=== PATIENT | female | born 1990 | race African-American/Black ===

== ENCOUNTER 2020-06-01 13:55 | Outpatient (REF) | payer OTHER, SELFPAY ==
--- NOTE | 2020-06-01 14:04 | XR_ITS ---
EXAMINATION: XR SACROILIAC JOINTS CLINICAL INFORMATION: Low back pain COMPARISON: None TECHNIQUE: 3 views of the sacroiliac joints FINDINGS: Bone alignment is normal. No fracture or dislocation is seen. The sacroiliac joints are normal. Soft tissues are normal. IMPRESSION: Normal sacroiliac joints.
== END 2020-06-01 13:56 | disposition home or self-care (01) ==
LOC: HO.HMGCX 13:55
PROVIDERS: PCP Internal Medicine; Visit Provider Internal Medicine
DX: M54.5 Low back pain (principal)
CPT/HCPCS: 72202

== ENCOUNTER → 2020-07-28 08:54 | Outpatient (BNVA) | payer OTHER, SELFPAY | PROVIDERS: PCP Internal Medicine; Referring Provider Internal Medicine; Visit Provider Physician Assistant | DX: Z76.89 Persons encountering health services in other specified circumstances (principal) ==

== ENCOUNTER 2020-08-05 09:32 | Outpatient (REF) | payer OTHER, SELFPAY ==
--- NOTE | 2020-08-05 09:35 | FL_ITS ---
EXAMINATION: FL BARIUM SWALLOW CLINICAL INFORMATION: Dysphagia. COMPARISON: None TECHNIQUE: Barium swallow examination is performed using fluoroscopic evaluation in addition to multiple fluoroscopic spot views. The patient is imaged both upright and prone and using both thick and thin sulfate along with effervescent granules. Fluoroscopy time: 1 minute . DAP: 7.420 Gycm2 Images: 50 FINDINGS: Following oral administration of thick barium, barium-coated turkey in upright view, there is normal propagation of bolus from the oral cavity, pharynx, esophagus into stomach without any evidence of obstruction, narrowing or stricture. On placing patient prone lying and oral administration of thin barium, there is normal esophageal distention without intraluminal filling defect or narrowing. There is no gastroesophageal reflux or hiatal hernia in supine or decubitus views. FL/FL barium swallow IMPRESSION: Unremarkable barium swallow. Especially, there is no obstructive lesion seen in cervical esophagus.
== END 2020-08-05 09:33 | disposition home or self-care (01) ==
LOC: HO.XRAY 09:32
PROVIDERS: Visit Provider Physician Assistant
DX: R13.10 Dysphagia, unspecified (principal)
CPT/HCPCS: 74220

== ENCOUNTER → 2020-08-16 11:38 | Outpatient (BNVA) | payer OTHER, SELFPAY | PROVIDERS: PCP Internal Medicine; Visit Provider Physician Assistant | DX: Z76.89 Persons encountering health services in other specified circumstances (principal) ==

== ENCOUNTER 2020-10-06 10:22 | Day surgery (SDC) | payer OTHER, SELFPAY ==
[2020-09-30 09:17] VITALS: BMI 26.6
--- NOTE | 2020-10-05 09:43 | HO.ANESPROP2 ---
Documented by User: Tracey Martines 10/05/20 09:44 HPI - Anesthesia Eval Consult details Narrative: 30yo F for Upper Endoscopy PMFSH Active Problems Active Problems: All Active Problems (Updated 08/16/20 @ 12:41 by Keturah Natarajan PA-C) Hyperlipidemia (Acute) SI (sacroiliac) joint dysfunction (Acute) History of ankle surgery (Acute) Dysphagia (Acute) Lower back pain (Acute) Migraine headache (Acute) Tension headache (Acute) Past Medical History Medical History Dysphagia Hyperlipidemia Lower back pain Migraine headache SI (sacroiliac) joint dysfunction Tension headache Family History Family History Father No problems noted. Mother Fibromyalgia Surgical History Surgical History History of ankle surgery Hx of emergency section Social History Social History Household Members: Spouse and Children Alcohol intake: never Smoking Status: Never smoker Use of substances other than those prescribed or required for medical reasons: No Advance Directives: No Advance Directives Information Provided: No Advance Directives on File: No Current occupation: [employer]- Currently out of work due to work injury Meds Allergies Allergy/AdvReac Type Severity Reaction Status Date / Time No Known Allergies Allergy Unverified 05/12/20 17:40 [No Known Allergies*] Home Medications Medication Instructions Recorded Confirmed Last Taken Type etonogestrel 68 mg subdermal SUBDERMAL 06/01/20 08/16/20 Unknown History implant methylprednisolone tab PO 09/30/20 09/30/20 Unknown History Exam Exam Date and Time: October 05, 2020 0943 Height,Weight and Vital Signs: Height 5 ft 5 in Weight 72.575 kg Assessment and Plan Assessment Anesthesia Assessment: Chart Reviewed Documented by User: Yolanda Balderrama 10/06/20 10:46 PMF Past Medical History Medical History Dysphagia Hyperlipidemia Lower back pain Migraine headache SI (sacroiliac) joint dysfunction Tension headache Family History Family History Father No problems noted. Mother Fibromyalgia Surgical History Surgical History History of ankle surgery Hx of emergency section Social History Social History Household Members: Spouse and Children Alcohol intake: never Smoking Status: Never smoker Use of substances other than those prescribed or required for medical reasons: No Advance Directives: No Advance Directives Information Provided: No Advance Directives on File: No Current occupation: [employer]- Currently out of work due to work injury Meds Allergies Allergy/AdvReac Type Severity Reaction Status Date / Time No Known Allergies Allergy Unverified 05/12/20 17:40 [No Known Allergies*] Home Medications Medication Instructions Recorded Confirmed Last Taken Type etonogestrel 68 mg subdermal SUBDERMAL 06/01/20 08/16/20 Unknown History implant methylprednisolone tab PO 09/30/20 09/30/20 Unknown History Exam Airway Mallampati Class: I TM Dist: >3cm Loose/Missing/Broken Teeth: No Heart: RRR Lungs: CTA Assessment and Plan Assessment Anesthesia Assessment: Anesthesia Plan Discussed and Chart Reviewed Final Anesthetic Review NPO: Yes ASA Class: II Final Preanesthetic Review: Consent Obtained/Reviewed and Anes Risks/Benef Reviewed Patient Risk: Low Procedure Risk: Intermediate Anesthetic Plan Anesthetic Plan: MAC: Disposition: Standard PACU
[2020-10-06 10:38] VITALS: BP 113/60; PULSE 79; RESP 16; TEMP 36.2; O2SAT 98
[2020-10-06 10:44] LABS: UPreg QC Valid YES; Urine Pregnancy NEGATIVE (NEGATIVE)
--- NOTE | 2020-10-06 10:45 | P.HPSUR_ITS ---
Pre-Procedural Eval Section B Chief Complaint: dysphagia Details of Present Illness: All of my life trouble swallowing--back throat gets itchy then can not swallow No clinical changes since pre egd visit. Relevant Family History (Specify if Yes): No Relevant Social History: None Present Medications: see Short Stay Collaborative assessment Medical History: Significant History (Migraine) History of Previous Operations: Relevant previous surgery/procedure and date(s) (ankle surgery) Allergies: Allergies Allergy/AdvReac Type Severity Reaction Status Date / Time No Known Allergies Allergy Unverified 05/12/20 17:40 [No Known Allergies*] Review of Systems Sugical H&P ROS: Negative: Constitution, Cardiovascular, Respiratory and Gastrointestinal Exam Surgical H&P Exam: Normal: HEENT, Normal: Heart, Normal: Lungs, Normal: Abdomen and Normal: Skin Plan Diagnosis/Plan: Unchanged I have reviewed the history and physical and performed a pertinent physical examination on my patient. No changes have occurred unless specifi ed.--yes
[2020-10-06] MEDS: Lactated Ringers 1,000 ML 100 ML IVCONT (10:51)
--- NOTE | 2020-10-06 11:08 | PM.OP ---
Brief Operative Note Date of Service: 10/06/20 Pre-op diagnosis: Itchy throat and then can not swallow Post-op diagnosis: other (Hx dysphagia, Hiatal hernia, s. gastritis) Procedure: EGD with bx Implants: no Surgeon: Jovana Mancini MD Anesthesia: MAC (md [place]) Estimated blood loss (mL): 5 Pathology: other (gastric, esophageal) Condition: stable Disposition: PACU
[2020-10-06 11:11] VITALS: BP 110/62; PULSE 96; RESP 18; TEMP 36.6; O2SAT 98
[2020-10-06 11:25] VITALS: BP 123/72; PULSE 83; RESP 20; TEMP 37.6; O2SAT 100
[2020-10-06 11:40] VITALS: BP 126/70; PULSE 67; RESP 20; TEMP 37.2; O2SAT 100
--- NOTE | 2020-10-06 15:07 | W.PM.OPN ---
Operative Note Operative Note Date of Service: 10/06/20 Narrative: Pre-op diagnosis: Itchy throat and then can not swallow(DYSPHAGIA) Post-op diagnosis: other (Hx dysphagia, Hiatal hernia, s. gastritis) Procedure: EGD with bx Implants: no Surgeon: Jovana Mancini MD Anesthesia: MAC (md [place]) Estimated blood loss (mL): 5 Pathology: other (gastric, esophageal bx) FINDINGS: ESOPHAGEAL--DISTAL ERYTHEMA--no erosions, no rings SMALL (1CM) HIATAL HERNIA STOMACH: Mild increased erythema of the antral area DUODENAL BULB DUOD--endoscopically normal villi. Bx as listed above. Scope was withdrawn--patient tolerated the procedure well. PLAN: Patient to take her PPI @ hs. She will have a followup appt as scheduled. Condition: stable Disposition: PACU
== END 2020-10-06 12:16 | disposition home or self-care (01) ==
PROVIDERS: Nurse Practitioner; PCP Internal Medicine; Visit Provider Internal Medicine Gastroenterology
PROC: 0DJ08ZZ Inspection of Upper Intestinal Tract, Via Natural or Artificial Opening Endoscopic (ICD-10-PCS; CPT 43235; principal; 2020-10-06 10:40)
DX: R13.10 Dysphagia, unspecified (principal); K29.30 Chronic superficial gastritis without bleeding; K44.9 Diaphragmatic hernia without obstruction or gangrene; Z97.8 Presence of other specified devices; G43.909 Migraine, unspecified, not intractable, without status migrainosus; M54.5 Low back pain
CPT/HCPCS: 43239; 81025; 88305; 88342

== ENCOUNTER → 2020-10-31 09:32 | Outpatient (BNVA) | payer OTHER, SELFPAY | PROVIDERS: PCP Internal Medicine; Visit Provider Physician Assistant ==

== ENCOUNTER 2020-11-28 21:47 | Emergency (ER) | payer OTHER, SELFPAY ==
[2020-11-28 21:58] VITALS: BP 121/64; PULSE 85; RESP 16; TEMP 36.7; O2SAT 99; BMI 29.2
[2020-11-28 22:28] LABS: Glucose Urine UA NEG (NEG); Leukocyte Esterase Urine NEG (NEG); Nitrite Urine NEG (NEG); PH 5.5 (5.0-8.0); Specific Gravity - Urine >= 1.030 (1.005-1.025); Urine Blood NEG (NEG); Urine Ketones NEG (NEG); Urine Protein NEG (NEG-TRACE)
[2020-11-28 22:31] LABS: UPreg QC Valid YES; Urine Pregnancy NEGATIVE (NEGATIVE)
[2020-11-28 22:44] LABS: Appearance Urine CLEAR; Color Urine YELLOW
[2020-11-28 22:59] LABS: Mucus Urine TRACE /LPF; RBC Urine 0 /HPF (0); Squamous Epithelial Cell Urine 2+ /LPF; WBC Urine 0-2 /HPF (0-4)
[2020-11-29] VITALS: BP 123/71; PULSE 81; RESP 14; TEMP 36.8; O2SAT 100
--- NOTE | 2020-11-29 00:37 | PC.NURSE ---
PT TO ROOM WITH C/O VAGINAL DISCHARGE X 1 TIME TODAY. PT ALSO C/O LOWER ABD PAIN. PT CHG INTO GOWN AND AWAITING MD'S EVAL.
--- NOTE | 2020-11-29 00:42 | ED.FEMALEGU ---
HPI - Female Genitourinary General Chief complaint: Urogenital-Female Stated complaint: CRAMPING, DISCHARGE Time Seen by Provider: 11/29/20 00:22 Source: patient Mode of arrival: ambulatory Limitations: no limitations History of Present Illness HPI Narrative: Patient presents to the ED for not abdominal cramping and white vaginal discharge that began today. Patient states no flank pain, fever, chills, nausea, or vomiting. Patient states she has only 1 sexual partner. Patient states no dysuria or hematuria. Related Data Home Medications Medication Instructions Recorded Confirmed etonogestrel 68 mg subdermal SUBDERMAL 06/01/20 10/31/20 implant methylprednisolone tab PO 09/30/20 10/31/20 Previous Rx's Medication Instructions Recorded doxycycline hyclate 100 mg PO BID 7 Days #14 cap 11/29/20 metronidazole 500 mg PO Q12H 7 Days #14 tab 11/29/20 Allergies Allergy/AdvReac Type Severity Reaction Status Date / Time No Known Allergies Allergy Verified 11/28/20 21:57 [No Known Allergies*] Review of Systems Review of Systems: Yes all other systems are reviewed and are negative Constitutional: Constitutional: Reports as per HPI and Reports no additional constitutional complaints Eyes: Eyes: Reports as per HPI and Reports no additional eye complaints ENT: Reports system reviewed and no additional complaints, except as documented and Reports as per HPI Cardiovascular: Cardiovascular: Reports as per HPI and Reports no additional cardiovascular complaints Respiratory: Respiratory: Reports as per HPI and Reports no additional respiratory complaints Gastrointestinal: Gastrointestinal: Reports as per HPI and Reports no additional gastrointestinal complaints Genitourinary: Genitourinary: Reports no additional female genitourinary complaints, Reports as per HPI and Reports vaginal discharge (White) Musculoskeletal: Musculoskeletal: Reports no additional musculoskeletal complaints and Reports as per HPI Neurologic: Reports system reviewed and no additional complaints, except as documented and Reports as per HPI Psychiatric: Psychiatric: Reports no additional psychiatric complaints and Reports as per HPI PMF Past Medical History Medical History (Updated 11/29/20 @ 01:51 by KRISTA Dempsey) Dysphagia Dysphagia Hyperlipidemia Lower back pain Migraine headache SI (sacroiliac) joint dysfunction Tension headache Surgical History History of ankle surgery Hx of emergency section Family History Family History Father No problems noted. Mother Fibromyalgia Maternal Grandmother No problems noted. Maternal Grandfather No problems noted. Paternal Grandmother No problems noted. Paternal Grandmother No problems noted. Brother No problems noted. Brother No problems noted. Brother No problems noted. Brother No problems noted. Daughter No problems noted. Social History Social History (Updated 10/31/20 @ 09:34 by Radha Thomas [facility]) Household Members: Spouse and Children Alcohol intake: never Smoking Status: Never smoker Advance Directives: No Current occupational status: unemployed Current occupation: [employer]- Currently out of work due to work injury Physical Exam Vital Signs: Vital Signs: Last Vital Signs Temp 98.3 F 11/29/20 00:00 Pulse 81 11/29/20 00:00 Resp 14 11/29/20 00:00 BP 123/71 11/29/20 00:00 Pulse Ox 100 11/29/20 00:00 Body Mass Index 29.2 Const: General: cooperative, healthy appearing, comfortable, no acute distress, well developed, alert, awake and Physically active Orientation/consciousness: patient oriented x3 HENMT: Head: Yes normal to inspection, Yes No palpable skull fracture present, Yes normocephalic, Yes atraumatic and No abrasion Eyes: General: appearance normal, both eyes and all related structures Neck: Neck: Yes normal visual inspection, Yes full ROM, Yes no lymphadenopathy, Yes no meningeal signs, Yes trachea midline, Yes supple and No tender Chest: Chest palpation & inspection: normal inspection of the chest and normal palpation of entire chest wall Resp: Effort & Inspection: normal respiratory effort and able to speak in complete sentences Auscultation: clear to auscultation bilaterally Cardio: Jugular venous distension: no JVD Heart sounds: S1 normal heart sound present and S2 normal heart sound present GI: Inspection: Yes normal to inspection and No abdominal wall ecchymosis Palpation (GI): Soft to palpation, not firm, nontender, no guarding and not rigid : Other: White discharge. negative CMT. General: Yes Bimanual renal exam normal bilaterally, No CVA tenderness and Yes no CVA tenderness External Female Exam: normal external appearance and normal appearance of the urethra Speculum Exam - Vagina: normal appearance of the vagina and abnormal vaginal discharge white and frothy Bimanual exam- vagina & uterus: normal bimanual exam Bimanual Exam- Adnexa, other: normal adnexae Back/Spine/Pelvis: Back: no CVA tenderness, No CVA tenderness and No back tenderness Skin: General skin exam: no rashes or lesions noted and elasticity normal Neuro: General: patient oriented x3, no meningeal signs and CN's II-XI intact bilaterally Cranial nerves: Yes CN's II-XII intact bilaterally Extrem: General: Yes normal to inspection and Yes full ROM Psych: Appearance: grossly normal, well kempt and not disheveled Course Course Course Narrative: Patient had pelvic exam done Reevaluation(s) Reevaluation #1: Diagnosis vaginitis versus possible STI. Patient agreed with empiric treatment. UA negative for UTI MDM - Female Genitourinary MDM Narrative Medical decision making narrative: Vaginitis Lab Data Labs: Lab Results 11/28/20 11/28/20 11/28/20 Range/Units 22:14 22:14 22:14 Urine Color YELLOW Urine Appearance CLEAR Urine pH 5.5 (5.0-8.0) Ur Specific [place] >= 1.030 H (1.005-1.025) Urine Protein NEG (NEG-TRACE) MG/DL Urine Glucose (UA) NEG (NEG) MG/DL Urine Ketones NEG (NEG) MG/DL Urine Blood NEG (NEG) Urine Nitrite NEG (NEG) Ur Leukocyte Esterase NEG (NEG) Urine RBC 0 (0) /HPF Urine WBC 0-2 (0-4) /HPF Ur Squamous Epith Cells 2+ /LPF Urine Bacteria NONE /LPF Urine Mucus TRACE /LPF Urine Yeast TRACE /HPF Urine Test NEGATIVE (NEGATIVE) Tara species DNA (Negative) Chlam trachomat DNA PCR NOT DETECTED (Not Detect.) Gardnerella DNA Probe (Negative) N.gonorrhoeae DNA (PCR) NOT DETECTED (Not Detect.) Trichomonas DNA Probe (Negative) 11/29/20 Range/Units 01:25 Urine Color Urine Appearance Urine pH (5.0-8.0) Ur Specific [place] (1.005-1.025) Urine Protein (NEG-TRACE) MG/DL Urine Glucose (UA) (NEG) MG/DL Urine Ketones (NEG) MG/DL Urine Blood (NEG) Urine Nitrite (NEG) Ur Leukocyte Esterase (NEG) Urine RBC (0) /HPF Urine WBC (0-4) /HPF Ur Squamous Epith Cells /LPF Urine Bacteria /LPF Urine Mucus /LPF Urine Yeast /HPF Urine Test (NEGATIVE) Tara species DNA Negative (Negative) Chlam trachomat DNA PCR (Not Detect.) Gardnerella DNA Probe Positive A (Negative) N.gonorrhoeae DNA (PCR) (Not Detect.) Trichomonas DNA Probe Negative (Negative) Discharge Plan Discharge Clinical Impression: Vaginitis Patient Disposition: Home, Self-Care Instructions: Bacterial Vaginosis (ED), Yeast Infection (ED) Additional Instructions: Return to the ED for worsening abdominal pain, fever, chills, flank pain, worsening discharge, or any other concerning symptoms. Prescriptions: New doxycycline hyclate 100 mg capsule 100 mg PO BID 7 Days Qty: 14 RF: 0 metronidazole 500 mg tablet 500 mg PO Q12H 7 Days Qty: 14 RF: 0 No Action methylprednisolone 4 mg tablets,dose pack PO RF: 0 Nexplanon 68 mg implant subdermal RF: 0 Referrals: Lisa Coe MD [Primary Care Provider] - 2 days (Vaginitis) Interventions: ED Discharge Assessment Last Done: 11/29/20 02:07 Discharge Date/Time: 11/29/20 02:07 Print Language: Chinese
--- NOTE | 2020-11-29 01:30 | PC.NURSE ---
PA IN ROOM FOR PELVIC EXAM. CULTURES OBTAINED AND SENT TO LAB FOR EVAL.
[2020-11-29] MEDS: Fluconazole 150 MG TABLET PO (01:42)
[2020-11-29] MEDS: cefTRIAXone sodium 500 MG, Lidocaine HCl 1 % MPF 1 ML IM (01:43)
--- NOTE | 2020-11-29 01:51 | MHC.MBSS ---
PT MEDICATED AND PA IN ROOM FOR DISCHARGE INSTRUCTIONS. PT DENIES ANY COMPLAINTS AT THIS TIME.
[2020-11-29 10:44] LABS: BV Int Neg Control Negative (Negative); BV Int Pos Control Positive (Positive)
[2020-11-29 13:01] LABS: CT PCR NOT DETECTED (Not Detect.); NG PCR NOT DETECTED (Not Detect.)
== END 2020-11-29 02:07 | disposition home or self-care (01) ==
PROVIDERS: Physician Assistant; Emergency Provider Internal Medicine; PCP Internal Medicine
DX: N76.0 Acute vaginitis (principal); R10.9 Unspecified abdominal pain; Z20.2 Contact with and (suspected) exposure to infections with a predominantly sexual mode of transmission; Z79.899 Other long term (current) drug therapy
CPT/HCPCS: 81001; 81025; 87480; 87491; 87510; 87591; 87660; 96372; 99283; 99284; J0696

== ENCOUNTER 2021-01-13 13:00 | Outpatient (RCR) | payer OTHER, SELFPAY ==
--- NOTE | 2021-01-03 09:52 | MHC.PT.EP ---
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 Pt is deemed an appropriate candidate to receive skilled PT in order to address her physical limitations to improve her functional ability. Frequency and Duration: The patient will be seen 2 x/ wk x 6 wks. Short Term Goals: initiate HEP. Performs sit <> supine transfer without compensation. 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 Improve core strength to > Good; initial: Fair+. Pt will report < 10% disturbed sleep d/t LBP, initial 30%. Treatment Plan: Modalities to reduce pain, spasms and effusion. Manual therapy to restore motion and function. Therapeutic exercise to improve strength and flexibility. Neuromuscular re-education for posture and balance. Therapeutic activities to return to functional activities of daily living. Electronically signed by: Ridge Mcdonough PT. Please sign and return to therapist. Thank you for your referral.
== END 2021-04-14 12:14 | disposition home or self-care (01) ==
LOC: HO.PTCHIC 13:00
PROVIDERS: PCP Internal Medicine; Visit Provider Physician Assistant
DX: M54.5 Low back pain (principal)
CPT/HCPCS: 97110; 97161

== ENCOUNTER 2021-04-11 12:45 | Emergency (ER) | payer OTHER, SELFPAY ==
--- NOTE | ~2021-04-11 | XR_ITS ---
EXAMINATION: XR SHOULDER, LEFT CLINICAL INFORMATION: Shoulder pain COMPARISON: None TECHNIQUE: The left shoulder is imaged in 3 views. FINDINGS: There is no fracture or dislocation. The glenohumeral joint is unremarkable. There are no visible rotator cuff calcifications. The acromioclavicular alignment is normal. Left lung apex shows no pneumothorax or pleural reaction. XR/XR shoulder LT min 2V IMPRESSION: Normal left shoulder.
[2021-04-11 14:05] VITALS: BP 126/62; PULSE 66; RESP 18; TEMP 37; O2SAT 100; BMI 33.3
--- NOTE | 2021-04-11 16:18 | ED_ITS ---
HPI - Extremity Problem General Chief complaint: Extremity Problem Stated complaint: left arm pain Time Seen by Provider: 04/11/21 16:12 Source: patient Mode of arrival: ambulatory Limitations: no limitations History of Present Illness HPI Narrative: 31 y/o female presenting with acute onset of non-traumatic left sided shoulder pain that started yesterday. She cannot recall when she was doing when it started, she woke up with it and it got worse as the day went on. She reports pain with abduction. She is having a hard time putting on and taking off her clothes. She denies weakness, numbness or tingling. The pain is on the lateral aspect of her shoulder and only present when she moves it. She is left hand dominant. Denies any repetitive motions or exercise. MD Complaint: joint paint Onset (ago): day(s) (1) Pain Consistency: intermittent Location: left and upper extremity Severity scale (1-10): 6 Quality: aching Radiation: none Relieving factors: rest Exacerbating factors: range of motion and palpation Associated symptoms: denies other symptoms Related Data Home Medications Medication Instructions Recorded Confirmed etonogestrel 68 mg subdermal SUBDERMAL 06/01/20 10/31/20 implant (Nexplanon) methylprednisolone 4 mg tablets in tab PO 09/30/20 10/31/20 a dose pack Previous Rx's Medication Instructions Recorded doxycycline hyclate 100 mg capsule 100 mg PO BID 7 Days #14 cap 11/29/20 metronidazole 500 mg tablet 500 mg PO Q12H 7 Days #14 tab 11/29/20 ibuprofen 600 mg tablet 600 mg PO Q8H PRN #20 tab 04/11/21 lidocaine 5 % topical patch 1 patch TOPICAL DAILY #15 ea 04/11/21 (Lidoderm) Allergies Allergy/AdvReac Type Severity Reaction Status Date / Time No Known Allergies Allergy Verified 11/28/20 21:57 [No Known Allergies*] Review of Systems Review of Systems: Constitutional: No Fever, No Chills Cardiovascular: No Chest Pain, No SOB Respiratory: No Cough, No Sputum Gastrointestinal: No Nausea, No Vomiting Musculoskeletal: + joint pain, No Myalgias Skin: No Skin Lesions, No rash Neuro: No Weakness, No Numbness Heme/Lymph: No Bruising PMFSH Past Medical History Attestation statement: The following information was validated with the patient. Medical History Dysphagia Dysphagia Hyperlipidemia Lower back pain Migraine headache SI (sacroiliac) joint dysfunction Tension headache Surgical History History of ankle surgery Hx of emergency section Family History Family History Father No problems noted. Mother Fibromyalgia Maternal Grandmother No problems noted. Maternal Grandfather No problems noted. Paternal Grandmother No problems noted. Paternal Grandmother No problems noted. Brother No problems noted. Brother No problems noted. Brother No problems noted. Brother No problems noted. Daughter No problems noted. Social History Social History (Updated 10/31/20 @ 09:34 by Radha Thomas [facility]) Household Members: Spouse and Children Household Members Other:: 2 1/2 y/o Alcohol intake: never Advance Directives: No Advance Directives Information Provided: No Patient : No Current occupational status: unemployed Current occupation: [employer]- Currently out of work due to work injury Physical Exam Vital Signs: Vital Signs: Last Vital Signs Temp 98.6 F 04/11/21 14:05 Pulse 66 04/11/21 14:05 Resp 18 04/11/21 14:05 BP 126/62 04/11/21 14:05 Pulse Ox 100 04/11/21 14:05 Body Mass Index 33.3 Appearance: Alert. Oriented X3. No acute distress. HEENT: normal inspection CVS: Normal heart rate and rhythm. Pulses normal. Respiratory: No respiratory distress. Skin: Skin warm and dry. Normal skin color. Normal skin turgor. No rashes. Extremities: normal inspection of left shoulder. tenderness to the AC joint and superior portion of the humerus, no skin changes or swelling. pain on passive abduction. equal and symmetrical strength throughout. Neuro: Oriented X 3. No motor deficit. No sensory deficit. Course Course Course Narrative: 31 y/o female presenting with nontraumatic left shoulder pain. XR is normal. Possible brusitis vs tendonitis. Will place in sling for comfort for 48 hours to rest and immolbilize. Will give course of NSAID and have her f/u with PCP and Ortho if no improvement. We discussed ROM exercises and need for outpatient follow up. Stable for d/c home with supportive care. Discharge Plan Discharge Clinical Impression: Tendonitis of shoulder, left Patient Disposition: Home, Self-Care Instructions: Tendinitis (ED), Shoulder Pain (ED) Additional Instructions: Your x-ray today was normal. Recommend rest in the sling for 2 days. Take prescribed ibuprofen every 6-8 hours - take with food. Use ice several times per day. After 2 days start with gentle range of motion exercised. Follow up with Orthopedics for further evaluation. If you develop new or worsening symptoms call 911 or come back to the ER for further evaluation. Prescriptions: New ibuprofen 600 mg tablet 600 mg PO Q8H PRN (Reason: pain) Qty: 20 RF: 0 lidocaine [Lidoderm] 5 % adhesive patch,medicated 1 patch topical DAILY Qty: 15 RF: 0 No Action methylprednisolone 4 mg tablets,dose pack PO RF: 0 doxycycline hyclate 100 mg capsule 100 mg PO BID 7 Days Qty: 14 RF: 0 metronidazole 500 mg tablet 500 mg PO Q12H 7 Days Qty: 14 RF: 0 Nexplanon 68 mg implant subdermal RF: 0 Referrals: Linden Omer MD [Physician] - 2 days (left shoulder pain, probable tendonitis) Stand Alone Forms: Work/School Release Interventions: ED Discharge Assessment Last Done: 04/11/21 16:36 Discharge Date/Time: 04/11/21 16:37
--- NOTE | 2021-04-11 16:35 | PC.NURSE ---
PT BROUGHT INTO RESULTS PENDING. PT EVALUATED BY CARMELA VELASCO UPON ARRIVAL TO ROOM. PLAN IS FOR SLING AND DISCHARGE HOME. PT AWARE AND AGREEABLE TO PLAN. NEUROS INTACT. +CMS.
== END 2021-04-11 16:37 | disposition home or self-care (01) ==
PROVIDERS: Emergency Provider Emergency Medicine; PCP Internal Medicine
DX: M75.82 Other shoulder lesions, left shoulder (principal); M79.602 Pain in left arm
CPT/HCPCS: 73030; 99283

== ENCOUNTER → 2021-04-13 14:59 | Outpatient (BNVA) | payer OTHER, SELFPAY | PROVIDERS: PCP Internal Medicine; Visit Provider Physician Assistant | DX: M75.82 Other shoulder lesions, left shoulder (principal); M53.3 Sacrococcygeal disorders, not elsewhere classified; M54.5 Low back pain; E78.5 Hyperlipidemia, unspecified | CPT/HCPCS: 99202 ==

== ENCOUNTER 2021-04-23 20:58 | Emergency (ER) | payer OTHER, SELFPAY ==
--- NOTE | ~2021-04-23 | CT_ITS ---
EXAMINATION: CT FACIAL BONES WITH CONTRAST CLINICAL INFORMATION: Mass in left nare, no fevers, no trauma COMPARISON: 04/23/2018 TECHNIQUE: 85 mL Omnipaque 350 intravenous contrast was utilized. Multidetector helical imaging was performed through the facial bones. Coronal and sagittal reformatted images were created. This CT examination was performed using dose optimization techniques as appropriate, variously including the following: *Automated exposure control *Adjustment of mA and/or kV according to patient size (this includes techniques or standardized protocols for targeted exams where dose is matched to indication/reason for exam; i.e. extremities or head) *Use of iterative reconstruction technique DLP: 365 mGy-cm FINDINGS: The frontal, maxillary, ethmoid, and sphenoid sinuses are well aerated. The uncinate process is normal bilaterally. There is mild mucosal thickening of the nasal meati, with no focal mass visualized. There is leftward deviation of the nasal septum. No acute maxillofacial fractures are seen. The mandibular condyles are well-seated in the condylar fossa. The orbits demonstrate a normal appearance bilaterally. The globes are intact, and there are no suspicious findings to suggest retrobulbar hemorrhage. Vasculature is unremarkable. Visualized portions of the brain parenchyma are unremarkable. CT/CT facial bones w con IMPRESSION: Mild mucosal thickening of the nasal meati, with no focal mass identified. Leftward deviation of the nasal septum is noted.
[2021-04-23 21:42] VITALS: BP 129/83; PULSE 78; RESP 18; TEMP 36.9; O2SAT 100; BMI 27.4
--- NOTE | 2021-04-23 23:35 | ED_ITS ---
HPI - General Adult General Chief complaint: General Medical Stated complaint: swollen nose glands? Time Seen by Provider: 04/23/21 23:31 Source: patient Mode of arrival: ambulatory History of Present Illness HPI narrative: 31-year-old female without significant past medical history and denies any history of smoking or family history of ear nose or throat cancers. Patient states that approximately 3 weeks ago she noted clear drainage from her left nostril and decided to look inside of her nose and noted that there was a bulge. Patient denied any pain, but states that since that time she has had increasing ?clear secretions with a lot of sneezing? and states that it has increased in size and now she can feel it moved into the back of her nostril when she tries to lay down and go to sleep. She denies fevers, chills, trauma. Related Data Home Medications Medication Instructions Recorded Confirmed etonogestrel 68 mg subdermal SUBDERMAL 06/01/20 10/31/20 implant (Nexplanon) methylprednisolone 4 mg tablets in tab PO 09/30/20 10/31/20 a dose pack Previous Rx's Medication Instructions Recorded doxycycline hyclate 100 mg capsule 100 mg PO BID 7 Days #14 cap 11/29/20 metronidazole 500 mg tablet 500 mg PO Q12H 7 Days #14 tab 11/29/20 lidocaine 5 % topical patch 1 patch TOPICAL DAILY #15 ea 04/11/21 (Lidoderm) ibuprofen 800 mg tablet 800 mg PO Q8H PRN 30 Days #90 tab 04/13/21 Allergies Allergy/AdvReac Type Severity Reaction Status Date / Time No Known Allergies Allergy Verified 04/23/21 21:42 [No Known Allergies*] Review of Systems Review of Systems: Pertinent positives and negatives as stated in HPI 10 point review of systems is otherwise negative. [facility] Past Medical History Source: nursing notes reviewed Medical History Dysphagia Dysphagia Hyperlipidemia Lower back pain Migraine headache SI (sacroiliac) joint dysfunction Tension headache Surgical History History of ankle surgery Hx of emergency section Family History Family History Father No problems noted. Mother Fibromyalgia Maternal Grandmother No problems noted. Maternal Grandfather No problems noted. Paternal Grandmother No problems noted. Paternal Grandmother No problems noted. Brother No problems noted. Brother No problems noted. Brother No problems noted. Brother No problems noted. Daughter No problems noted. Social History Social History Household Members: Spouse and Children Household Members Other:: 2 1/2 y/o Alcohol intake: never Advance Directives: No Advance Directives Information Provided: Yes Patient : No Current occupational status: unemployed Current occupation: lt handed/[employer]- Currently out of work due to work injury Physical Exam Vital Signs: Vital Signs: Last Vital Signs Temp 98.4 F 04/23/21 21:42 Pulse 78 04/23/21 21:42 Resp 18 04/23/21 21:42 BP 129/83 04/23/21 21:42 Pulse Ox 100 04/23/21 21:42 Body Mass Index 27.4 VITAL SIGNS: Reviewed. GENERAL: Well developed, well nourished, in no acute distress. HEAD: Normocephalic/atraumatic EYES: PERRLA, EOMI EARS: Ext canals without abnormality, TMs non-bulging and non-erythematous NOSE: Approximate 1.5 cm mass at mid left nostril with ulceration, non erythematous and on retraction lateral nostril appears to be extending from left maxillary sinus OROPHARYNX: no oral lesions noted, posterior pharynx clear and non-erythematous without noted tonsillar enlargement/erythema/exudates NECK: Supple, no adenopathy LUNGS: Normal breath sounds. No adventitious sounds or accessory muscle use. SpO2<100> CARDIOVASCULAR: Regular rate and rhythm without noted murmurs ABDOMEN: Soft, non-tender, non-distended with bowel sounds. SKIN: Inspection of the skin reveals no rashes NEUROLOGIC: Alert and oriented x 4. Strength and sensation to light touch were grossly intact x 4. Course Course Course Narrative: 31-year-old female with history and clinical presentation soft tissue mass in the left nostril, will evaluate for possible maxillary sinus mass versus abscess in the absence of trauma not felt that the clear secretions are a communication intracranially. Review of all investigations without acute findings to direct immediate intervention. There is some noted thickening on CT scan and patient will be encouraged to follow-up with her primary care provider as well as providing her with a referral to ENT for further evaluation. Medical Decision Making Lab Data Result diagrams: 04/23/21 23:51 Labs: Lab Results 04/23/21 04/23/21 Range/Units 23:41 23:51 Sodium 138 (135-145) mmol/L Potassium 4.5 (3.3-5.1) mmol/L Chloride 106 (96-108) mmol/L Carbon Dioxide 24 (22-29) mmol/L Anion Gap 13 (12-20) BUN 12 (9-16) mg/dL Creatinine 1.10 (0.5-1.4) mg/dL Estim Creat Clear Calc 73.0 Estimated GFR 58 Random Glucose 85 (60-115) mg/dL Calcium 8.9 (8.4-10.2) mg/dL Urine Test NEGATIVE (NEGATIVE) Discharge Plan Discharge Clinical Impression: Nasal mass Patient Disposition: Home, Self-Care Instructions: Nasal Polyps (ED) Additional Instructions: 1. Follow-up with your primary care provider in the next 1-2 days for re- evaluation and discussion regarding possible ENT referral. 2. A referral has been provided to you below, but you may need a referral from your primary care provider. Return to the ER for acute worsening of any symptoms. Prescriptions: No Action lidocaine [Lidoderm] 5 % adhesive patch,medicated 1 patch topical DAILY Qty: 15 RF: 0 methylprednisolone 4 mg tablets,dose pack PO RF: 0 doxycycline hyclate 100 mg capsule 100 mg PO BID 7 Days Qty: 14 RF: 0 metronidazole 500 mg tablet 500 mg PO Q12H 7 Days Qty: 14 RF: 0 Nexplanon 68 mg implant subdermal RF: 0 ibuprofen 800 mg tablet 800 mg PO Q8H PRN (Reason: pain) 30 Days Qty: 90 RF: 3 Referrals: Lisa Coe MD [Primary Care Provider] - 2 days (Patient with left nasal ?Polyp, may need ENT referral) [facility] [Outside] - 2 days (Patient with ?Nasal polyp)
[2021-04-23 23:49] LABS: UPreg QC Valid YES; Urine Pregnancy NEGATIVE (NEGATIVE)
[2021-04-24 00:32] LABS: Anion Gap 13 (12-20); Blood Urea Nitrogen 12 mg/dL (9-16); Calcium 8.9 mg/dL (8.4-10.2); Carbon Dioxide 24 mmol/L (22-29); Chloride 106 mmol/L (96-108); Estimated Glomerular Filt Rate 58; Glucose Random 85 mg/dL (60-115); Potassium 4.5 mmol/L (3.3-5.1); Sodium 138 mmol/L (135-145)
[2021-04-24] MEDS: iohexoL 350 MG/ML 100 ML INFUS..BTL 85 ML IV (01:30)
== END 2021-04-24 02:58 | disposition home or self-care (01) ==
PROVIDERS: Emergency Provider Student in an Organized Health Care Education/Training Program; PCP Internal Medicine
DX: R22.0 Localized swelling, mass and lump, head (principal); J34.89 Other specified disorders of nose and nasal sinuses; R13.10 Dysphagia, unspecified; M54.5 Low back pain; Z79.899 Other long term (current) drug therapy; Z87.891 Personal history of nicotine dependence
CPT/HCPCS: 36415; 70487; 80048; 81025; 99283; Q9967

== ENCOUNTER 2021-05-16 14:47 | Emergency (ER) | payer OTHER, SELFPAY ==
--- NOTE | ~2021-05-16 | US_ITS ---
EXAMINATION: US VENOUS ULTRASOUND WITH DOPPLER LOWER EXTREMITY, RIGHT CLINICAL INFORMATION: This is a 31-year-old female with right leg pain. Possible deep vein thrombosis. COMPARISON: None TECHNIQUE: Ultrasound of the deep veins is performed from the hip to the calf with compression sonography and color and pulse Doppler assessment. Spectral analysis with color-flow imaging is performed. FINDINGS: There is normal venous compression and respiratory variation and augmented flow. The visualized common femoral vein, superficial femoral vein, profunda femoral vein, popliteal vein, and the trifurcation region shows no evidence of deep venous thrombosis. There is no significant popliteal fossa cyst. If the patient's symptoms persist, followup ultrasound in 5 days 7 days might be of value to exclude proximal propagation from a non-visualized calf vein. US/US venous duplex LE RT IMPRESSION: No DVT demonstrated in the right lower extremity. EXAMINATION: ULTRASOUND SOFT TISSUE OF THE RIGHT ANKLE CLINICAL HISTORY: This is a 31-year-old female with right posterior ankle pain. No known trauma. TECHNIQUE: Ultrasound was targeted to the area of pain at the posterior ankle. FINDINGS: No tear of the soft tissues or tendon is seen. No fluid collection is seen. No masses are seen. IMPRESSION: 1. No soft tissue abnormality seen in the posterior right ankle.
--- NOTE | ~2021-05-16 | US_ITS ---
EXAMINATION: US VENOUS ULTRASOUND WITH DOPPLER LOWER EXTREMITY, RIGHT CLINICAL INFORMATION: This is a 31-year-old female with right leg pain. Possible deep vein thrombosis. COMPARISON: None TECHNIQUE: Ultrasound of the deep veins is performed from the hip to the calf with compression sonography and color and pulse Doppler assessment. Spectral analysis with color-flow imaging is performed. FINDINGS: There is normal venous compression and respiratory variation and augmented flow. The visualized common femoral vein, superficial femoral vein, profunda femoral vein, popliteal vein, and the trifurcation region shows no evidence of deep venous thrombosis. There is no significant popliteal fossa cyst. If the patient's symptoms persist, followup ultrasound in 5 days 7 days might be of value to exclude proximal propagation from a non-visualized calf vein. US/US extremity nonvascular IMPRESSION: No DVT demonstrated in the right lower extremity. EXAMINATION: ULTRASOUND SOFT TISSUE OF THE RIGHT ANKLE CLINICAL HISTORY: This is a 31-year-old female with right posterior ankle pain. No known trauma. TECHNIQUE: Ultrasound was targeted to the area of pain at the posterior ankle. FINDINGS: No tear of the soft tissues or tendon is seen. No fluid collection is seen. No masses are seen. IMPRESSION: 1. No soft tissue abnormality seen in the posterior right ankle.
--- NOTE | ~2021-05-16 | XR_ITS ---
EXAMINATION: XR ANKLE, RIGHT CLINICAL INFORMATION: Pain COMPARISON: Previous right lower leg x-ray September 2018 and previous MRI January 2020 TECHNIQUE: AP, lateral, and mortise views of the right ankle. FINDINGS: The bones and soft tissues are normal. No fracture. Alignment is anatomic. Joint spaces are maintained. No joint effusion. XR/XR ankle RT 2V IMPRESSION: Normal right ankle.
[2021-05-16 16:04] VITALS: BP 130/62; PULSE 82; RESP 18; TEMP 37; O2SAT 99; BMI 27.4
--- NOTE | 2021-05-16 17:27 | ED.LOWEXIN ---
HPI - Extremity Injury (Lower) General Chief Complaint: Extremity Injury, Lower Stated Complaint: ANKLE PAIN (POST OP) Time Seen by Provider: 05/16/21 16:28 Source: patient Mode of arrival: ambulatory Limitations: no limitations History of Present Illness HPI Narrative: This is a 31-year-old female with atraumatic right ankle pain. She states yesterday she suddenly got 10/10 and ankle pain, and swelling. She states that the pain is constant, worse with walking, movement and palpation. She states at times the pain is a shooting pain that goes from her ankle down to her foot. She states she has had previous surgeries in her right ankle that Dr. Tee Quezada has done on her but she is unable to specify what kind of surgery. She denies trauma to the area, chest pain, fevers, chills, paresthesias, numbness, tingling, shortness of breath, recent falls. She also denies knee, and hip pain. MD complaint: ankle injury (Right ankle) Onset (ago): day(s) (1) Place: home Severity: severe Severity scale (1-10): 10 Relieving factors: nothing Exacerbating factors: weight bearing and movement Other symptoms: none Related Data Home Medications Medication Instructions Recorded Confirmed etonogestrel 68 mg subdermal SUBDERMAL 06/01/20 10/31/20 implant (Nexplanon) methylprednisolone 4 mg tablets in tab PO 09/30/20 10/31/20 a dose pack Previous Rx's Medication Instructions Recorded doxycycline hyclate 100 mg capsule 100 mg PO BID 7 Days #14 cap 11/29/20 metronidazole 500 mg tablet 500 mg PO Q12H 7 Days #14 tab 11/29/20 lidocaine 5 % topical patch 1 patch TOPICAL DAILY #15 ea 04/11/21 (Lidoderm) ibuprofen 800 mg tablet 800 mg PO Q8H PRN 30 Days #90 tab 04/13/21 ibuprofen 800 mg tablet 800 mg PO Q8H PRN #14 tab 05/16/21 oxycodone 5 mg tablet 5 mg PO Q6H PRN #10 tab 05/16/21 Allergies Allergy/AdvReac Type Severity Reaction Status Date / Time No Known Allergies Allergy Verified 04/23/21 21:42 [No Known Allergies*] Review of Systems Review of Systems: Constitutional : No changes in activity, No lethargy, No recent prior head injury, No agitation, No increased fussiness ENT/Mouth : No Ear Pain, No Nasal discharge/drainage Eyes: No Eye Pain, No Swelling, No Redness, No Foreign Body, No Vision Changes Cardiovascular : No Chest Pain, No SOB Respiratory : No Cough Gastrointestinal : No Nausea, No Vomiting, No abdominal Pain Genitourinary : No Dysuria, No Urinary Frequency, No Urinary Incontinence, No Urgency, No Flank Pain Musculoskeletal : + (right ankle) joint pain, No neck stiffness, No back pain/injury Skin : No lacerations Neuro : No unsteady gait, No Paresthesias, No Loss of Consciousness, No altered mental status, No Headache Yes all other systems are reviewed and are negative [facility] Past Medical History Medical History (Updated 05/16/21 @ 17:30 by KRISTA Contreras) Dysphagia Dysphagia Hyperlipidemia Lower back pain Migraine headache Nasal polyps SI (sacroiliac) joint dysfunction Tension headache Surgical History History of ankle surgery Hx of emergency section Family History Family History Father No problems noted. Mother Fibromyalgia Maternal Grandmother No problems noted. Maternal Grandfather No problems noted. Paternal Grandmother No problems noted. Paternal Grandmother No problems noted. Brother No problems noted. Brother No problems noted. Brother No problems noted. Brother No problems noted. Daughter No problems noted. Social History Social History Household Members: Spouse and Children Household Members Other:: 2 1/2 y/o Alcohol intake: never Advance Directives: No Advance Directives Information Provided: No Patient : No Current occupational status: unemployed Current occupation: lt handed/[employer]- Currently out of work due to work injury Physical Exam Vital Signs: Vital Signs: Last Vital Signs Temp 98.6 F 05/16/21 16:04 Pulse 82 05/16/21 16:04 Resp 18 05/16/21 16:04 BP 130/62 05/16/21 16:04 Pulse Ox 99 05/16/21 16:04 Body Mass Index 27.4 vital signs have been reviewed as normal and appeared to be correct. Blood pressure hypertensive 147/76 Heart rate normal. Respiration rate normal. Temperature normal. Oxygen saturation normal. Appearance: Alert. Oriented X3. No acute distress. Head: Normal external exam. Normocephalic. Atraumatic. Eyes: PERRLA. EOMI. Conjunctiva and sclera normal. Eyelids normal. ENT: Pharynx normal. Uvula midline. Moist mucous membranes. Neck: Normal inspection. Neck supple. FROM. CVS: Normal heart rate and rhythm. Respiratory: No respiratory distress. Painless inspiration. Skin: Skin warm and dry. Normal skin color. Normal skin turgor. No rashes/lesions/lacerations noted. Extremities: No noted lower extremity edema. + painful full rom to right ankle. +Tenderness to palpation to right ankle. - Dumas test, but patient states its tender to palpation over the Achilles tendon. No overlying skin changes to ankle. No calf tenderness noted. Normal pulses 2+ and normal capillary refill noted. Negative Flower sign Neuro: Oriented X 3. No motor deficit. No sensory deficit. Reflexes normal. Normal steady gait. No focal neuro deficits noted. Vascular: + radial pulses/+ 2 distal pedal pulses/+2 dorsalis pedis b/l. Normal cap refill. No cyanosis noted to upper extremity nails and lower extremity toes nails. Course Course Course Narrative: This is a 31-year-old female presents with 1 day of increased pain to her right ankle, atraumatic. She states she suddenly started having severe 10/10 pain, she denies trauma to the area. She also states that her right ankle appears more swollen than usual. She states she has had two surgeries to the right ankle, both of which have been done by Dr. Tee Quezada. No past medical history. Physical exam: painful full rom to right ankle. Tenderness to palpation to right ankle. - dumas test, but patient states its tender to palpation over the achellies tendon. Negative Flower sign. Plan: ultrasound of the right Achilles tendon to rule out Achilles tendon rupture. right venous duplex ordered to rule out DVT. DVT is unlikely at this time due to clinical picture but will rule out due to patients vague symptoms. Reevaluation(s) Reevaluation #1: Extremity ultrasound shows no soft tissue abnormality in the posterior right ankle, there is also no signs of DVT. Patient will be sent home on oxycodone and Motrin. She should follow up with her primary care provider in 2 days Discharge Plan Discharge Clinical Impression: Right ankle sprain Qualifiers: Encounter type: initial encounter Involved ligament of ankle: unspecified ligament Qualified Code(s): S93.401A - Sprain of unspecified ligament of right ankle, initial encounter Patient Disposition: Home, Self-Care Instructions: Ankle Sprain (ED), R.I.C.E. Treatment (ED) Additional Instructions: Follow-up with your primary care provider. Rash, ice, elevate your right ankle. Follow-up with an orthopedic doctor if you do not improve in 2-3 weeks. Take medications as prescribed for pain. Return to the emergency department with new or worsening symptoms Prescriptions: New ibuprofen 800 mg tablet 800 mg PO Q8H PRN (Reason: pain) Qty: 14 RF: 0 oxycodone 5 mg tablet 5 mg PO Q6H PRN (Reason: pain) Qty: 10 RF: 0 No Action lidocaine [Lidoderm] 5 % adhesive patch,medicated 1 patch topical DAILY Qty: 15 RF: 0 methylprednisolone 4 mg tablets,dose pack PO RF: 0 doxycycline hyclate 100 mg capsule 100 mg PO BID 7 Days Qty: 14 RF: 0 metronidazole 500 mg tablet 500 mg PO Q12H 7 Days Qty: 14 RF: 0 Nexplanon 68 mg implant subdermal RF: 0 ibuprofen 800 mg tablet 800 mg PO Q8H PRN (Reason: pain) 30 Days Qty: 90 RF: 3 Referrals: Lisa Coe MD [Primary Care Provider] - 2 days Stand Alone Forms: Work/School Release
[2021-05-16] MEDS: oxyCODONE HCl Immed Release 5 MG TABLET PO (18:29)
[2021-05-16] MEDS: Ibuprofen 800 MG TABLET PO (18:30)
== END 2021-05-16 19:35 | disposition home or self-care (01) ==
PROVIDERS: Emergency Provider Emergency Medicine Emergency Medical Services; PCP Internal Medicine
DX: S93.401A Sprain of unspecified ligament of right ankle, initial encounter (principal); M25.571 Pain in right ankle and joints of right foot; R60.0 Localized edema; X50.1XXA Overexertion from prolonged static or awkward postures, initial encounter; Y93.9 Activity, unspecified; Y92.9 Unspecified place or not applicable; Y99.9 Unspecified external cause status; Z79.899 Other long term (current) drug therapy
CPT/HCPCS: 73600; 76882; 93971; 99284

== ENCOUNTER 2022-02-15 16:29 | Outpatient (REF) | payer OTHER, SELFPAY ==
--- NOTE | ~2022-02-15 | XR_ITS ---
EXAMINATION: XR CHEST CLINICAL INFORMATION: Cough. COMPARISON: Chest x-ray 11/25/2018 TECHNIQUE: 2 views of the chest were obtained. FINDINGS: No significant abnormality is noted involving the heart, lungs, mediastinum, bony thorax or soft tissues. XR/XR chest 2V IMPRESSION: Unremarkable examination.
== END 2022-02-15 16:30 | disposition home or self-care (01) ==
LOC: HO.HMGCX 16:29
PROVIDERS: PCP Internal Medicine
DX: R05.9 Cough, unspecified (principal)
CPT/HCPCS: 71046

== ENCOUNTER 2022-11-01 22:18 | Emergency (ER) | payer OTHER, SELFPAY ==
[2022-11-01 22:42] VITALS: BP 126/76; PULSE 92; RESP 18; TEMP 36.5; O2SAT 99; BMI 24.9
[2022-11-01 23:35] LABS: Influenza A PCR NEGATIVE (Negative); Influenza B PCR NEGATIVE (Negative); Resp Syncy Virus RNA Qual PCR NEGATIVE (Negative); SARS COV2 PCR INHOUSE POSITIVE (Negative)
[2022-11-01 23:41] VITALS: BP 119/66; PULSE 85; RESP 19; TEMP 36.8; O2SAT 100
[2022-11-01 23:58] LABS: Basophils Percent Auto 0.8 % (0-2); Eosinophils Absolute Auto 0.1 X10*3/uL (0.0-0.4); Eosinophils Percent Auto 2.7 % (0-4); Hematocrit 38.1 % (37.0-47.0); Hemoglobin 12.6 g/dl (12.0-16.0); Lymphocytes Absolute Auto 3.1 X10*3/uL (1.2-4.9); Lymphocytes Percent Auto 60.3 % (20-40); MANUAL DIFF FLAG SCAN; Mean Corpuscular HGB Conc 33.1 g/dl (31.0-35.0); Mean Corpuscular Hemoglobin 27.6 pg (27.0-33.0); Mean Corpuscular Volume 83.4 fL (80.0-98.0); Mean Platelet Volume 9.6 fL (9.4-12.3); Monocytes Absolute Auto 0.4 X10*3/uL (0.1-1.2); Monocytes Percent Auto 7.7 % (2-11); Neutrophils Absolute Auto 1.5 x10*3/uL (2.0-8.3); Neutrophils Percent Auto 28.5 % (45-73); Platelet Count 226 X10*3/uL (160-400); Red Blood Count 4.57 X10*6/uL (4.20-5.50); Red Cell Distribution Width 12.6 % (11.0-16.0); SCAN SMEAR FLAG 1; White Blood Count 5.2 X10*3/uL (4.8-10.8)
--- NOTE | 2022-11-02 00:10 | ED_ITS ---
HPI - Nausea/Vomiting/Diarrhea General Chief complaint: Nausea/Vomiting/Diarrhea Stated complaint: fever,vomiting,diarrhea Time Seen by Provider: 11/01/22 23:52 Source: patient Mode of arrival: ambulatory Limitations: no limitations History of Present Illness HPI Narrative: This is a 32-year-old female presenting to the emergency department complaints of body aches and pains, tickle in throat fatigue, malaise, fevers, chills, nausea, dry heaving x6 days not improving. Patient tells me that there roomate/friend is sick with similar symptoms and tested positive for COVID-19. Patient tells me that she feels worn out and has not been able to eat or drink much due to the nausea. Patient reports the only thing that she has been able to keep down is white rice. Patient also has an intermittent diffuse headache (doesnt have one now) , feels like typical without vision changes, dizziness or trauma. Patient denies chest pain, shortness of breath, vision changes, dizziness, weakness, abdominal pain, diarrhea. NIH stroke scale 0. Related Data Home Medications Medication Instructions Recorded Confirmed naproxen sodium 220 mg tablet 220 mg PO BID PRN 02/15/22 (Aleve) Previous Rx's Medication Instructions Recorded ondansetron 4 mg disintegrating 4 mg PO Q6H PRN nausea and 11/02/22 tablet vomiting #14 tabs prednisone 20 mg tablet 40 mg PO DAILY 5 days #10 tabs 11/02/22 Allergies Allergy/AdvReac Type Severity Reaction Status Date / Time gabapentin Allergy rash loss Verified 06/12/22 09:32 of memory Review of Systems Review of Systems: Constitutional : No Weight loss, + Fever, + Chills, + Fatigue, + Malaise ENT/Mouth : + sore throat, No Rhinorrhea Eyes: No Eye Pain, No Swelling, No Redness Cardiovascular : No Chest Pain, No SOB, No Dyspnea on Exertion, No Orthopnea, No Edema, No Palpitations Respiratory : No Cough, No Sputum, No Wheezing Gastrointestinal : No Nausea, No Vomiting, No Diarrhea, No Constipation, No abdominal Pain, No Hematochezia, No Melena Genitourinary : No Dysuria, No Urinary Frequency, No Hematuria, Musculoskeletal : No joint pain, + Myalgias, No Joint Swelling Skin : No Skin Lesions, No rash Neuro : No Weakness, No Numbness, No Dizziness, No Headache Psych : No Anxiety/Panic, No Depression All other systems reviewed and are negative Yes all other systems are reviewed and are negative [facility] Past Medical History Attestation statement: The following information was validated with the patient. Source: old records reviewed and nursing notes reviewed Medical History Annual physical exam Dysphagia Hyperlipidemia Lower back pain Migraine headache Nasal polyps SI (sacroiliac) joint dysfunction Tension headache Surgical History History of ankle surgery Hx of emergency section Family History Family History Father No problems noted. Mother Fibromyalgia Maternal Grandmother No problems noted. Maternal Grandfather No problems noted. Paternal Grandmother No problems noted. Paternal Grandmother No problems noted. Brother No problems noted. Brother No problems noted. Brother No problems noted. Brother No problems noted. Daughter No problems noted. Social History Social History Household Members: Spouse and Children Household Members Other:: 2 1/2 y/o Housing: House Alcohol intake: never Patient Tobacco Use Status: Never used Tobacco e-Cigarette/Vaping Use: Never Used Advance Directives: No Advance Directives Information Provided: No Current occupational status: unemployed Current occupation: lt handed/[employer]- Currently out of work due to work injury Cognitive needs: No Hearing needs: No Vision needs: Yes Physical Exam Vital Signs: Vital Signs: Last Vital Signs Temp 98.2 F 11/01/22 23:41 Pulse 85 11/01/22 23:41 Resp 19 11/01/22 23:41 BP 119/66 11/01/22 23:41 Pulse Ox 100 11/01/22 23:41 O2 Del Method 11/01/22 23:41 BMI result Body Mass Index 24.9 Vital signs stable Appearance: Alert.? Oriented X3.? No acute distress.? Head: Normocephalic, atraumatic, no step-offs or deformities Eyes: Pupils equal, round and reactive to light.? ENT: Pharynx normal.? Uvula midline. Bilateral tonsils with mild enlargement and erythema however no exudates. No signs of abscess. Patient speaking in full sentences controlling secretions well. Neck: Normal inspection.? Neck supple.? CVS: Normal heart rate and rhythm.? Pulses normal.? Respiratory: No respiratory distress.? Breath sounds normal.? Abdomen: Soft and nontender.? Skin: Skin warm and dry.? Normal skin color.? Normal skin turgor.? Extremities: No lower extremity edema.? No calf ttp. 5/5 strength to bilateral upper and lower extremities Neuro: Oriented X 3.? No motor deficit.? No sensory deficit. CN 2-12 intact . Ambulating with steady gait normal coordination. Normal rapid alternating movements. Negative pronator drift. Course Reevaluation(s) Reevaluation #1: Patient noted to be COVID positive consistent with patient's presentation. Patient not a candidate for antiviral treatment as per symptoms have been going on for 6 days. Will give Zofran for nausea and vomiting. Prednisone for tonsils. Educated patient on diagnosis and treatment plan, answered all question, patient verbalizes understanding. At this time patient will be discharged home, advised to return with new or worsening symptoms. Educated on worrisome signs and symptoms and when to return. At this time I feel com fortable discharge home. Time: 00:18 Medical Decision Making Medical Decision Making [facility] Narrative: 0013 32-year-old female presents with COVID like symptoms had a recent sick contact with somebody was COVID-19 positive, symptoms going on for 6 days. Physical exam significant for Pharynx normal.? Uvula midline. Bilateral tonsils with mild enlargement and erythema however no exudates. No signs of abscess. Patient speaking in full sentences controlling secretions well. Neuro nonfocal. Regular rate and rhythm. Lungs clear. Likely viral illness or COVID-19. Unlikely intracranial hemorrhage, stroke, posterior stroke. Headache likely secondary to viral illness. Sore throat likely secondary to viral illness I do not suspect epiglottitis or peritonsillar abscess. No signs of pneumonia. Unlikely PE or ACS. Plan at this time viral testing. Differential Diagnosis Differential Diagnoses: The differential diagnosis associated with the presentation includes Likely viral illness or COVID-19. Unlikely intracranial hemorrhage, stroke, posterior stroke. Headache likely secondary to viral illness. Sore throat likely secondary to viral illness I do not suspect epiglottitis or peritonsillar abscess. No signs of pneumonia. Unlikely PE or ACS. Admission/Observation Consideration of admission/observation: Escalation of care including admission/observation considered Unlikely Lab Data MDM Lab Attestation statement: I reviewed the patient's lab results. 11/01/22 23:49 11/01/22 23:49 Labs: Lab Results 11/01/22 11/01/22 Range/Units 22:50 23:49 WBC 5.2 (4.8-10.8) X10*3/uL RBC 4.57 (4.20-5.50) X10*6/uL Hgb 12.6 (12.0-16.0) g/dl Hct 38.1 (37.0-47.0) % MCV 83.4 (80.0-98.0) fL MCH 27.6 (27.0-33.0) pg MCHC 33.1 (31.0-35.0) g/dl RDW 12.6 (11.0-16.0) % Plt Count 226 (160-400) X10*3/uL MPV 9.6 (9.4-12.3) fL Immature Gran % (Auto) 0.0 (0.0-0.4) % Neut % (Auto) 28.5 L (45-73) % Lymph % (Auto) 60.3 H (20-40) % [place] % (Auto) 7.7 (2-11) % Eos % (Auto) 2.7 (0-4) % Baso % (Auto) 0.8 (0-2) % Lymph # (Auto) 3.1 (1.2-4.9) X10*3/uL [place] # (Auto) 0.4 (0.1-1.2) X10*3/uL Eos # (Auto) 0.1 (0.0-0.4) X10*3/uL Baso # (Auto) 0.0 (0.0-0.2) X10*3/uL Abs Immat Gran (auto) 0.00 (0.00-0.03) X10*3/uL Absolute Neuts (auto) 1.5 L (2.0-8.3) x10*3/uL Absolute Nucleated RBC 0.000 (0.0-0.012) X10*3/uL Nucleated RBC % (auto) 0.0 (0.0-0.2) /100WBC Smear Tech's Comments VERIFIED Influenza Type A (PCR) NEGATIVE (Negative) Influenza Type B (PCR) NEGATIVE (Negative) RSV RNA Qual (PCR) NEGATIVE (Negative) SARS-CoV-2 RNA (RT-PCR) POSITIVE A (Negative) Core Measures AMI core measures followed: Yes Measure exclusions: not indicated Critical Care Time Critical Care Time Critical Care Time: No Discharge Plan Discharge Clinical Impression: COVID-19 Patient Disposition: Home, Self-Care Instructions: COVID-19 (Coronavirus Disease 2019) (ED) Additional Instructions: Take your medications as prescribed. If you were prescribed antibiotics today, it is important that you take your medication to their entirety, do not skip any doses, do not finish them early. Today you tested positive for COVID-19. You take ibuprofen every 6 hours, Tyl enol every 4 hours as needed for fevers or body aches, do not exceed maximum daily dose is listed on packaging.. Quarantine for 5 days and ensure you wear a mask. After 5 days you should wear a mask for 5 days after that. Practice social distancing and good hand hygiene. Drink plenty of fluids. Follow-up with your primary care provider this week. Return to the emergency department with new or worsening symptoms. In case of emergency call 911 You can purchase a pulse oximeter from your local pharmacy or grocery store, and monitor your oxygen saturation if it goes below 94% you should return to the emergency department for further evaluation. Prescriptions: New ondansetron 4 mg tablet,disintegrating 4 mg PO Q6H PRN (Reason: nausea and vomiting) Qty: 14 0RF prednisone 20 mg tablet 40 mg PO DAILY 5 Days Qty: 10 0RF No Action naproxen sodium [Aleve] 220 mg tablet 220 mg PO BID PRN Referrals: Lisa Coe MD [Primary Care Provider] - 2 days Stand Alone Forms: Work/School Release
[2022-11-02 00:15] LABS: SLIDE REVIEW VERIFIED
[2022-11-02 00:20] VITALS: BP 107/74; PULSE 74; RESP 16; O2SAT 97
[2022-11-02] MEDS: Ondansetron ODT 4 MG TAB.RAPDIS TRANSLINGU (00:22)
[2022-11-02 00:29] LABS: Alanine Aminotransferase 15 U/L (0-31); Albumin Level 4.2 g/dL (3.5-5.0); Alkaline Phosphatase 44 U/L (39-117); Anion Gap 14 (12-20); Aspartate Amino Transferase 21 U/L (5-31); Bilirubin Direct < 0.2 mg/dL (0.0-0.5); Bilirubin Total 0.2 mg/dL (0.0-1.0); Blood Urea Nitrogen 9 mg/dL (9-16); Calcium 8.9 mg/dL (8.4-10.2); Carbon Dioxide 28 mmol/L (22-29); Chloride 102 mmol/L (96-108); Creatinine Clr Calc Pharmacy 72.4; Estimated Glomerular Filt Rate > 60; Glucose Random 85 mg/dL (60-115); Lipase 24 U/L (8-78); Potassium 4.2 mmol/L (3.3-5.1); Sodium 140 mmol/L (135-145); Total Protein 7.2 g/dL (6.5-8.0)
== END 2022-11-02 00:30 | disposition home or self-care (01) ==
PROVIDERS: Emergency Medicine; Emergency Provider Internal Medicine; PCP Internal Medicine
DX: U07.1 COVID-19 (principal); R50.9 Fever, unspecified; M79.10 Myalgia, unspecified site; Z79.899 Other long term (current) drug therapy
CPT/HCPCS: 0241U; 36415; 80048; 80076; 83690; 85025; 99283

== ENCOUNTER 2023-07-15 10:59 | Outpatient (AMB) | payer OTHER, SELFPAY ==
--- NOTE | 2023-07-15 11:04 | A.OFFPC_ITS ---
Vital Signs 07/15/23 11:05 Height 5 ft 4 in Weight 156 lb BMI 26.8 BP 118/70 Blood Pressure Location Lt brachial Position Sitting Pulse 82 Pulse Source Pulse Oximeter Pulse Oximetry (%) 99 Oxygen Delivery Method Room Air Intake Visit Reasons: Discuss Endo follow up Intake Note: Pt is here today for a follow up visit to discuss some questions she has. Allergies gabapentin Allergy (Verified 07/15/23 11:08) rash loss of memory Tobacco use date assessed: 07/15/23 Dental Screening Dental Screen Date: 07/15/23 Did you have a dental visit in the last 12 months?: Yes Did you have a dental problem in the last 6 months where you did not have access to dental care?: No Was dental information given to patient?: Patient has dentist HPI Discuss Endo follow up HPI Details Pt presents for a f/u visit. Pt will have director fixed income procedure for chronic pelvic pain, menorrhagia. Pt follows up with [facility] for chronic right lower extremity pain and weakness due to complex regional pain syndrome. [facility] Medical History (Updated 07/15/23 @ 12:17 by Lisa Coe MD) Annual physical exam Nasal polyps Dysphagia Hyperlipidemia SI (sacroiliac) joint dysfunction Lower back pain Migraine headache Tension headache Surgical History Hx of emergency section History of ankle surgery Family History Father No problems noted. Mother Fibromyalgia Maternal Grandmother No problems noted. Maternal Grandfather No problems noted. Paternal Grandmother No problems noted. Paternal Grandmother No problems noted. Brother No problems noted. Brother No problems noted. Brother No problems noted. Brother No problems noted. Daughter No problems noted. Social History Household Members: Spouse and Children Household Members Other:: 2 1/2 y/o Housing: House Alcohol intake: never Patient Tobacco Use Status: Never used Tobacco e-Cigarette/Vaping Use: Never Used Current occupational status: unemployed Current occupation: lt handed/[employer]- Currently out of work due to work injury Cognitive needs: No Hearing needs: No Vision needs: Yes Questionnaire PHQ-9 Over the last 2 weeks, how often have you been bothered by any of the following problems? 1. Little interest or pleasure in doing things: not at all 2. Feeling down, depressed, or hopeless: not at all 3. Trouble falling or staying asleep, or sleeping too much: not at all 4. Feeling tired or having little energy: not at all 5. Poor appetite or overeating: not at all 6. Feeling bad about yourself - or that you are a failure or have let yourself or your family down: not at all 7. Trouble concentrating on things, such as reading the newspaper or watching television: not at all 8. Moving or speaking so slowly that other people could have noticed. Or the opposite - being so fidgety or restless that you have been moving around a lot more than usual: not at all 9. Thoughts that you would be better off or of hurting yourself in some way: not at all Total score: 0 Depression Screening Interpretation: Negative Depression Screening Done: Yes Source: Developed by Drs. Pramod Rivas, Shannon Becker, Sarwat Almonte and colleagues, with an educational jessica from [employer]. Thrive Questionnaire Date Thrive assessed: 07/15/23 I am a: Patient What is your living situation today?: I have a steady place to live Within the past 12 months, did the food you bought not last and you didn't have the money to get more?: Never true Within the past 12 months, did you worry whether your food would run out before you got money to buy more?: Never true Do you have trouble paying for medicines?: No Do you have trouble getting transportation to medical appointments?: No Do you have trouble paying your heating and electricity bill?: No Do you have trouble taking care of your child, family member or friend?: No Do you have trouble with day-to-day activities such as bathing, preparing meals, shopping, managing finances, etc.?: No Are you currently unemployed and looking for a job?: No Are you interested in more education?: No Please select the resources that you would like help with: None AUDIT C Alcohol Use Questionnaire (AUDIT-C) 1. How often do you have a drink containing alcohol?: Monthly or less 2. How many drinks containing alcohol do you have on a typical day when you are drinking?: 1 or 2 3. How often do you have six or more drinks on one occasion?: Never Total Score: 1 BARRON-7 AMB Questionnaire BARRON-7 Date BARRON - 7 assessed: 07/15/23 Feeling nervous, anxious, or on edge: 0 = Not at all Not being able to stop or control worryin = Not at all Worrying too much about different things: 0 = Not at all Trouble relaxin = Not at all Being so restless that it is hard to sit still: 0 = Not at all Becoming easily annoyed or irritable: 0 = Not at all Feeling afraid as if something awful might happen: 0 = Not at all Total BARRON-7 score (0-4 normal; 5-9 mild; 10-14 moderate; 15-21 severe): 0 Source: Developed by Drs. Pramod Rivas, Shannon Becker, Sarwat Almonte and colleagues, with an educational jessica from [employer]. Review of Systems Const All systems reviewed & are unremarkable except as noted in HPI and below Reports no additional complaints Eyes Reports no additional complaints ENT Reports no additional complaints Card Reports no additional complaints Resp Reports no additional complaints GI Reports no additional complaints Reports no additional complaints Physical exam (Primary Care) Vital Signs: Last Vital Signs Pulse 82 07/15/23 11:05 BP 118/70 07/15/23 11:05 Pulse Ox 99 07/15/23 11:05 Oxygen Delivery Method Room Air 07/15/23 11:05 BMI result Body Mass Index 26.8 Tobacco/Smoking Status: Tobacco use Status Tobacco use date assessed 07/15/23 07/15/23 11:10 Patient Tobacco Use Status Never used Tobacco 07/15/23 11:10 e-Cigarette/Vaping Use Never Used 07/15/23 11:10 PHQ-9: PHQ-9 Score PHQ-9: Total score 0 07/15/23 11:10 Depression Screening Interpretation: Negative Thrive Assessment: Date of Thrive Assessment Date Thrive assessed 07/15/23 07/15/23 11:10 Const General: no acute distress HENMT Head: Yes normal to inspection Face and sinus: Yes normal facial exam Neck Neck: Yes supple Resp Effort & Inspection: normal respiratory effort Auscultation: clear to auscultation bilaterally Cardio Rhythm: regular rhythm Heart sounds: S1 normal heart sound present and S2 normal heart sound present GI Inspection: Yes normal to inspection Palpation (GI): Soft to palpation Auscultation: normal bowel sounds Assessment and Plan Assessment & Plan (1) Complex regional pain syndrome of lower extremity: Comment: RLE, f/u with [facility] Code(s): G90.529 - Complex regional pain syndrome I of unspecified lower limb (2) Menorrhagia: Comment: F/U with director fixed income Code(s): N92.0 - Excessive and frequent menstruation with regular cycle Coding Level of Care Code Est Pt Level 3 (81340) Diagnoses Complex regional pain syndrome of lower extremity G90.529 Menorrhagia N92.0
[2023-07-15 11:05] VITALS: BP 118/70; PULSE 82; O2SAT 99; BMI 26.8
== END 2023-07-15 12:17 | disposition home or self-care (01) ==
PROVIDERS: PCP Internal Medicine; Visit Provider Internal Medicine
DX: G90.529 Complex regional pain syndrome I of unspecified lower limb (principal); N92.0 Excessive and frequent menstruation with regular cycle
CPT/HCPCS: 99213

== ENCOUNTER 2023-08-31 20:58 | Emergency (ER) | payer OTHER, SELFPAY ==
[2023-08-31 21:07] VITALS: BP 104/61; PULSE 70; RESP 18; TEMP 36.8; O2SAT 98; BMI 25.6
[2023-08-31 21:27] LABS: MANUAL DIFF FLAG NO
[2023-08-31 21:41] LABS: Basophils Absolute Auto 0.1 X10*3/uL (0.0-0.2); Eosinophils Absolute Auto 0.3 X10*3/uL (0.0-0.4); Eosinophils Percent Auto 3.7 % (0-4); Hematocrit 36.4 % (37.0-47.0); Imm Gran Abs Auto 0.01 X10*3/uL (0.00-0.03); Imm Gran Pct Auto 0.1 % (0.0-0.4); Lymphocytes Absolute Auto 4.3 X10*3/uL (1.2-4.9); Lymphocytes Percent Auto 54.1 % (20-40); Mean Corpuscular Hemoglobin 27.4 pg (27.0-33.0); Mean Corpuscular Volume 83.1 fL (80.0-98.0); Mean Platelet Volume 9.5 fL (9.4-12.3); Monocytes Absolute Auto 0.6 X10*3/uL (0.1-1.2); Monocytes Percent Auto 7.7 % (2-11); Neutrophils Absolute Auto 2.6 x10*3/uL (2.0-8.3); Neutrophils Percent Auto 33.4 % (45-73); Platelet Count 304 X10*3/uL (160-400); Red Blood Count 4.38 X10*6/uL (4.20-5.50); Red Cell Distribution Width 12.9 % (11.0-16.0); White Blood Count 7.9 X10*3/uL (4.8-10.8)
[2023-08-31 21:52] LABS: Appearance Urine Turbid; Color Urine Yellow; Glucose Urine UA Negative (Negative); Leukocyte Esterase Urine Negative (Negative); Nitrite Urine Negative (Negative); PH 8.5 (5.0-9.0); Specific Gravity - Urine 1.025 (1.005-1.025); UMIC TRIGGER UACC YES; Urine Blood Trace (Negative); Urine Ketones Trace mg/dL (Negative); Urine Protein Negative (Neg-Trace)
[2023-08-31 21:57] LABS: Bacteria Urine None Seen (None Seen); Hyaline Casts Urine 0-2 /LPF (0-2); RBC Urine 0-2 /HPF (0-2); Squamous Epithelial Cell Urine 0-2 /HPF (0-2); WBC Urine 0-5 /HPF (0-5)
[2023-08-31 22:16] LABS: Alanine Aminotransferase 11 U/L (0-31); Albumin Level 4.2 g/dL (3.5-5.0); Alkaline Phosphatase 54 U/L (39-117); Anion Gap 9 (12-20); Aspartate Amino Transferase 19 U/L (5-31); Bilirubin Direct 0.1 mg/dL (0.0-0.5); Bilirubin Total 0.3 mg/dL (0.0-1.0); Blood Urea Nitrogen 10 mg/dL (9-16); Calcium 9.5 mg/dL (8.4-10.2); Carbon Dioxide 29 mmol/L (22-29); Chloride 105 mmol/L (96-108); Creatinine Clr Calc Pharmacy 76.1; Estimated Glomerular Filt Rate > 60; Glucose Random 105 mg/dL (60-115); Lipase 28 U/L (8-78); Potassium 3.9 mmol/L (3.3-5.1); Sodium 139 mmol/L (135-145); Total Protein 7.6 g/dL (6.5-8.0)
--- NOTE | 2023-08-31 23:35 | ED.FEMALEGU ---
HPI - Female Genitourinary General Chief complaint: Abdominal Pain Stated complaint: vaginal bleeding Time Seen by Provider: 08/31/23 23:25 Source: patient and family ( spouse and daughter) Mode of arrival: ambulatory Limitations: no limitations History of Present Illness HPI Narrative: 33-year-old female came in for evaluation of vaginal bleeding for 3 days. Patient passed a blood clot vaginally today followed by suprapubic abdominal pain seemed like cramps, patient changed 1 soaked pad while she is in the emergency department, No CP, no SOB, no fever, no chills. Related Data Previous Rx's Medication Instructions Recorded ondansetron 4 mg disintegrating 4 mg PO Q6H PRN nausea and 11/02/22 tablet vomiting #14 tabs Allergies Allergy/AdvReac Type Severity Reaction Status Date / Time gabapentin Allergy rash loss Verified 07/15/23 11:08 of memory Review of Systems Review of Systems: All other systems are reviewed and are negative Constitutional: Reports as per HPI and Reports no additional constitutional complaints Eyes: Reports as per HPI and Reports no additional eye complaints Reports system reviewed and no additional complaints, except as documented Cardiovascular: Reports as per HPI and Reports no additional cardiovascular complaints Respiratory: Reports as per HPI and Reports no additional respiratory complaints Gastrointestinal: Reports as per HPI and Reports no additional gastrointestinal complaints Genitourinary: Reports no additional female genitourinary complaints Musculoskeletal: Reports no additional musculoskeletal complaints Skin/Breast: Reports system reviewed and no additional complaints, except as docu Psychiatric: Reports no additional psychiatric complaints Endocrine: Reports no additional endocrine complaints Hematologic/Lymphatic: Reports no additional hematologic/lymphatic complaints Allergic/Immunologic: Reports no additional allergic/immunologic complaints Reports system reviewed and no additional complaints, except as documented and Reports Abnormal speech present [facility] Past Medical History Onset Date is defined in the Problem List Problems that require an onset date and time if occurred within 24 hrs of arrival to the ED Aortic Dissection and Rupture; Neurologic impairment; Cardiopulmonary Arrest; Endotracheal Intubation; Insertion or Replacement of Mechanical Circulatory Assist Device Medical History Annual physical exam Nasal polyps Dysphagia Hyperlipidemia SI (sacroiliac) joint dysfunction Lower back pain Migraine headache Tension headache Surgical History Hx of emergency section History of ankle surgery Family History Family History Father No problems noted. Mother Fibromyalgia Maternal Grandmother No problems noted. Maternal Grandfather No problems noted. Paternal Grandmother No problems noted. Paternal Grandmother No problems noted. Brother No problems noted. Brother No problems noted. Brother No problems noted. Brother No problems noted. Daughter No problems noted. Social History Social History Household Members: Spouse and Children Household Members Other:: 2 1/2 y/o Housing: House Alcohol intake: never Patient Tobacco Use Status: Never used Tobacco Smoked in Last 30 Days: No e-Cigarette/Vaping Use: Never Used Use of substances other than those prescribed or required for medical reasons: No Advance Directives: No Advance Directives Information Provided: No Current occupational status: unemployed Current occupation: lt handed/[employer]- Currently out of work due to work injury Cognitive needs: No Hearing needs: No Vision needs: Yes Physical Exam Vital Signs: Vital Signs: Last Vital Signs Temp 98.3 F 08/31/23 21:07 Pulse 88 09/01/23 01:55 Resp 20 09/01/23 01:55 BP 121/67 09/01/23 01:55 Pulse Ox 98 08/31/23 21:07 O2 Del Method Room Air 09/01/23 01:55 O2 Flow Rate 99 09/01/23 01:55 BMI result Body Mass Index 25.6 Vital signs have been reviewed and appear to be correct. Blood pressure elevated. Heart rate normal. Respiratory rate normal. Temperature normal. Oxygen saturation normal. Appearance: Alert. Oriented X3. No acute distress. Head: Normal external exam. Normocephalic. Atraumatic. No Ruggiero signs noted. No raccoon eyes noted Eyes: PERRLA. EOMI. Conjunctiva and sclera normal. Eyelids normal. ENT: TM's Normal. Pharynx normal. Uvula midline. Moist mucous membranes. No trismus noted. No drooling noted. No muffled voice noted. Neck: Normal inspection. Neck supple. FROM. No adenopathy. Thyroid Normal. No meningeal signs. No neck mass noted. CVS: Normal heart rate and rhythm. Heart sound normal. No murmurs noted. Pulses normal throughout. Respiratory: No respiratory distress. Painless inspiration. Breath sounds normal. No wheezes/rales/rhonchi noted. Chest nontender. No accessory muscle usage noted or decreased air movement noted. Abdomen: Soft and nontender. Bowel sounds normal in all 4 quadrants. No distention noted. No organomegaly noted. No visible injury noted. Pelvic exam: Normal inspection of the external genitalia, no CMT, no adnexal mass is appreciated on the physical exam, about 3 cc of clotted blood in the vault coming from the os. Back: No CVA tenderness. Full range of motion noted. Skin: Skin warm and dry. Normal skin color. Normal skin turgor. No rashes/lesions/lacerations noted. Extremities: No lower extremity edema. Extremities exhibit normal range of motion. Extremities nontender. Neuro: Oriented X 3. Cranial nerve exam: II-XII are grossly intact No motor deficit. No sensory deficit. Reflexes normal. Course Reevaluation(s) Reevaluation #1: Menorrhagia, patient in the process of following with her OBGYN for possible endometrial polyp removal and endometrial sampling to rule out cancer patient was instructed to follow-up with her OBGYN anabell. vital signs stable today patient hemodynamically stable. Time: 02:33 Medical Decision Making Differential Diagnosis Differential Diagnoses: The differential diagnosis associated with the presentation includes ( Abnormal , severe anemia, fibroid uterus, electrolyte abnormality , hemodynamic instability.) Admission/Observation Consideration of admission/observation: Escalation of care including admission/observation considered Lab Data MDM Lab Attestation statement: I reviewed the patient's lab results. 08/31/23 21:22 08/31/23 21:22 Labs: Lab Results 08/31/23 08/31/23 Range/Units 21:22 21:44 WBC 7.9 (4.8-10.8) X10*3/uL RBC 4.38 (4.20-5.50) X10*6/uL Hgb 12.0 (12.0-16.0) g/dl Hct 36.4 L (37.0-47.0) % MCV 83.1 (80.0-98.0) fL MCH 27.4 (27.0-33.0) pg MCHC 33.0 (31.0-35.0) g/dl RDW 12.9 (11.0-16.0) % Plt Count 304 D (160-400) X10*3/uL MPV 9.5 (9.4-12.3) fL Immature Gran % (Auto) 0.1 (0.0-0.4) % Neut % (Auto) 33.4 L (45-73) % Lymph % (Auto) 54.1 H (20-40) % [place] % (Auto) 7.7 (2-11) % Eos % (Auto) 3.7 (0-4) % Baso % (Auto) 1.0 (0-2) % Lymph # (Auto) 4.3 (1.2-4.9) X10*3/uL [place] # (Auto) 0.6 (0.1-1.2) X10*3/uL Eos # (Auto) 0.3 (0.0-0.4) X10*3/uL Baso # (Auto) 0.1 (0.0-0.2) X10*3/uL Abs Immat Gran (auto) 0.01 (0.00-0.03) X10*3/uL Absolute Neuts (auto) 2.6 (2.0-8.3) x10*3/uL Absolute Nucleated RBC 0.000 (0.0-0.012) X10*3/uL Nucleated RBC % (auto) 0.0 (0.0-0.2) /100WBC Sodium 139 (135-145) mmol/L Potassium 3.9 (3.3-5.1) mmol/L Chloride 105 (96-108) mmol/L Carbon Dioxide 29 (22-29) mmol/L Anion Gap 9 L (12-20) BUN 10 (9-16) mg/dL Creatinine 1.04 (0.5-1.4) mg/dL Estim Creat Clear Calc 76.1 Estimated GFR > 60 Random Glucose 105 (60-115) mg/dL Calcium 9.5 D (8.4-10.2) mg/dL Total Bilirubin 0.3 (0.0-1.0) mg/dL Direct Bilirubin 0.1 (0.0-0.5) mg/dL AST 19 (5-31) U/L ALT 11 (0-31) U/L Alkaline Phosphatase 54 (39-117) U/L Total Protein 7.6 (6.5-8.0) g/dL Albumin 4.2 (3.5-5.0) g/dL Lipase 28 (8-78) U/L Urine Color Yellow Urine Appearance Turbid Urine pH 8.5 (5.0-9.0) Ur Specific [place] 1.025 (1.005-1.025) Urine Protein Negative (Neg-Trace) mg/dL Urine Glucose (UA) Negative (Negative) mg/dL Urine Ketones Trace (Negative) mg/dL Urine Blood Trace H (Negative) Urine Nitrite Negative (Negative) Ur Leukocyte Esterase Negative (Negative) Urine RBC 0-2 (0-2) /HPF Urine WBC 0-5 (0-5) /HPF Ur Squamous Epith Cells 0-2 (0-2) /HPF Urine Bacteria None Seen (None Seen) Hyaline Casts 0-2 (0-2) /LPF Urine Test NEGATIVE (NEGATIVE) Independent Interpretation I performed an independent interpretation of an: Ultrasound ( Pelvic:Uterus: The uterus is anteverted and measures 7.1 x 5 x 5.6 cm. The double wall endometrial thickness is 6.3 mm. There is trace fluid within the endometrial and cervical canals. The uterus is smooth in contour and has normal myometrial echogenicity. No visible fibroid. Adnexa: Both ov) Radiology Impression Discussion of test interpretation with radiology: I have reviewed the radiologist's reading. Discharge Plan Discharge Clinical Impression: Menorrhagia Patient Disposition: Home, Self-Care Instructions: Menorrhagia (ED) Additional Instructions: Follow-up with your OBGYN. Prescriptions: No Action ondansetron 4 mg tablet,disintegrating 4 mg PO Q6H PRN (Reason: nausea and vomiting) Qty: 14 0RF Referrals: Lisa Coe MD [Primary Care Provider] -
--- NOTE | 2023-09-01 00:04 | PC.NURSE ---
pt taken with CT to get ultrasound at this time.
--- NOTE | 2023-09-01 00:54 | PC.NURSE ---
pt from home reporting starting her period regularly and then reports she had began passing large blood clots. pt reports she has never passed clots before and reports she had a few days of brown bleeding. pt unsure if she is at this time. pt reporting lower abdominal discomfort. denies n/v/d.
--- NOTE | 2023-09-01 01:36 | PC.NURSE ---
this rn at bedside with Dr. cardoso to do pelvic exam, pt tolerated well.
[2023-09-01 01:55] VITALS: BP 121/67; PULSE 88; RESP 20
== END 2023-09-01 03:56 | disposition home or self-care (01) ==
PROVIDERS: Emergency Provider Emergency Medicine; PCP Internal Medicine
DX: N92.0 Excessive and frequent menstruation with regular cycle (principal)
CPT/HCPCS: 36415; 76830; 76856; 80048; 80076; 81001; 81025; 83690; 85025; 99284

== ENCOUNTER 2023-11-19 17:37 | Emergency (ER) | payer OTHER, SELFPAY ==
[2023-11-19 18:13] VITALS: BP 117/70; PULSE 71; RESP 16; TEMP 36.9; O2SAT 100; BMI 25.3
--- NOTE | 2023-11-19 18:20 | ED_ITS ---
HPI - General Adult General Chief complaint: Upper Respiratory Symptoms Stated complaint: allergies, difficulty breathing Time Seen by Provider: 11/19/23 19:10 Source: patient Mode of arrival: ambulatory Limitations: no limitations History of Present Illness HPI narrative: 33 yold female presents to the ED for nasal congestion for couple of days. Patient states no chest pain, shortness of breath, headache, green discharge, weakness, coughing, fever, or chills. Related Data Previous Rx's Medication Instructions Recorded ondansetron 4 mg disintegrating 4 mg PO Q6H PRN nausea and 11/02/22 tablet vomiting #14 tabs Allergies Allergy/AdvReac Type Severity Reaction Status Date / Time gabapentin Allergy rash loss Verified 07/15/23 11:08 of memory Review of Systems Review of Systems: nasal congestion Yes all other systems are reviewed and are negative [facility] Past Medical History Medical History Annual physical exam Nasal polyps Dysphagia Hyperlipidemia SI (sacroiliac) joint dysfunction Lower back pain Migraine headache Tension headache Surgical History Hx of emergency section History of ankle surgery Family History Family History Father No problems noted. Mother Fibromyalgia Maternal Grandmother No problems noted. Maternal Grandfather No problems noted. Paternal Grandmother No problems noted. Paternal Grandmother No problems noted. Brother No problems noted. Brother No problems noted. Brother No problems noted. Brother No problems noted. Daughter No problems noted. Social History Social History Household Members: Spouse and Children Household Members Other:: 2 1/2 y/o Housing: House Alcohol intake: never Patient Tobacco Use Status: Never used Tobacco e-Cigarette/Vaping Use: Never Used Advance Directives: No Advance Directives Information Provided: No Current occupational status: unemployed Current occupation: lt handed/[employer]- Currently out of work due to work injury Cognitive needs: No Hearing needs: No Vision needs: Yes Physical Exam ED Vital Signs: Vital Signs - 24 hr 11/19/23 18:13 11/19/23 19:21 Temperature 98.5 F 98.5 F Pulse Rate 71 71 Respiratory Rate 16 16 Blood Pressure 117/70 117/70 Pulse Oximetry 100 100 Oxygen Delivery Method Room Air Room Air BMI result Body Mass Index 25.3 Const General: cooperative, healthy appearing, comfortable, no acute distress, well developed, alert and awake Orientation/consciousness: oriented to person, oriented to place, oriented to time and patient oriented x3 [facility] Head: Yes normal to inspection, Yes No palpable skull fracture present, Yes normocephalic, Yes atraumatic and No abrasion Ears: hearing grossly normal bilaterally, external ears normal, TM's normal bilaterally, TM normal on the right, TM normal on the left, EAC's normal, mastoids normal and no periauricular adenopathy General nose exam: Normal external nose present, Normal nares present and No nasal polyps present Face and sinus: Yes normal facial exam, Yes sinuses nontender and Yes face symmetric Mouth: Normal oral and palatal mucosa present, lip normal and tongue normal Throat: Yes posterior oropharynx normal, Yes tonsils normal and Yes uvula midline Eyes General: appearance normal, both eyes and all related structures Neck Neck: Yes normal visual inspection, Yes full ROM, Yes no lymphadenopathy, Yes no meningeal signs, Yes trachea midline, Yes supple, No anterior neck swelling and No tender Chest Chest palpation & inspection: normal inspection of the chest and normal palpation of entire chest wall Resp Effort & Inspection: normal respiratory effort and able to speak in complete sentences Auscultation: clear to auscultation bilaterally Cardio Jugular venous distension: no JVD Heart sounds: S1 normal heart sound present and S2 normal heart sound present GI Inspection: Yes normal to inspection and No abdominal wall ecchymosis Palpation (GI): Soft to palpation, not firm, nontender, no guarding and not rigid General: Yes no CVA tenderness Back/Spine/Pelvis Back: no CVA tenderness and No back tenderness Skin General skin exam: no rashes or lesions noted, elasticity normal and turgor normal Neuro General: oriented to person, oriented to place, oriented to time, patient oriented x3, gait normal, tone normal, moves all extremities, Normal light touch and pain sensation, no meningeal signs, no focal motor deficits and CN's II-XI intact bilaterally Extrem General: Yes normal to inspection, Yes full ROM and Yes capillary refill normal Psych Appearance: grossly normal, well kempt and not disheveled Course Course Course Narrative: RME: 33 yold female presents to the ED for nasal congestion. Patient believes maybe her allergies versus COVID exposure. Patient well-appearing. SARs swab ordered. 7:11pm: Patient will like to be called with results. patient has to leave. Medical Decision Making Medical Decision Making [facility] Narrative: 33 yold female presents to the ED for nasal congestion without any drainage. no other associated symptoms. SARS negative. Viral Syndrome vs allergic rhinitis. Patient explained worriseome signs and informed to return to the ED if she has them. Patient informed she can buy overthe counter claritin. Differential Diagnosis Differential Diagnoses: The differential diagnosis associated with the presentation includes (covid, RSV, and influenza. rhinitits, allergies) Lab Data [facility] Lab Attestation statement: I reviewed the patient's lab results. Labs: Lab Results 11/19/23 Range/Units 18:24 Influenza Type A (PCR) NEGATIVE (Negative) Influenza Type B (PCR) NEGATIVE (Negative) RSV RNA Qual (PCR) NEGATIVE (Negative) SARS-CoV-2 RNA (RT-PCR) NEGATIVE (Negative) Independent Historian Clinical information obtained from an independent historian. History obtained from or confirmed by: Other (patient) External Record Review External record reviewed: Other (prior visits.) Prescription Management I considered prescription management with: Other (seasonal allergies meds) Discharge Plan Discharge Clinical Impression: Nasal congestion Patient Disposition: Home, Self-Care Instructions: Cold Symptoms (ED) Additional Instructions: Recommend follow-up with primary care provider. Return to the ED for any chest pain, shortness of breath, coughing up blood, nasal green-yellow drainage, headache, dizziness, sinus pain, or any other concerning symptoms. Prescriptions: No Action ondansetron 4 mg tablet,disintegrating 4 mg PO Q6H PRN (Reason: nausea and vomiting) Qty: 14 0RF Interventions: ED Discharge Assessment Last Done: 11/19/23 19:21 Discharge Date/Time: 11/19/23 19:25 Print Language: Albanian
[2023-11-19 19:21] VITALS: BP 117/70; PULSE 71; RESP 16; TEMP 36.9; O2SAT 100
[2023-11-19 19:21] LABS: Influenza A PCR NEGATIVE (Negative); Influenza B PCR NEGATIVE (Negative); Resp Syncy Virus RNA Qual PCR NEGATIVE (Negative); SARS COV2 PCR INHOUSE NEGATIVE (Negative)
== END 2023-11-19 19:25 | disposition home or self-care (01) ==
PROVIDERS: Physician Assistant; Emergency Provider Emergency Medicine Emergency Medical Services; PCP Internal Medicine
DX: R06.02 Shortness of breath (principal); R09.81 Nasal congestion; Z11.52 Encounter for screening for COVID-19; Z20.822 Contact with and (suspected) exposure to COVID-19
CPT/HCPCS: 0241U; 99282; 99283

== ENCOUNTER 2023-12-06 11:57 | Outpatient (AMB) | payer OTHER, SELFPAY ==
--- NOTE | 2023-12-06 11:58 | MHC.PC.OV ---
Vital Signs 12/06/23 11:59 Height 5 ft 5 in Weight 145 lb BMI 24.1 BP 112/74 Blood Pressure Location Lt brachial Position Sitting Pulse 73 Pulse Source Pulse Oximeter Pulse Oximetry (%) 100 Intake Visit Reasons: Swollen glands/seen at ED 11/19 Intake Note: pt is here for swollen glands, seen at ED on 11/19 Allergies gabapentin Allergy (Verified 12/06/23 12:01) rash loss of memory Medication List - Last Reconciled 12/06/23 by Lisa Coe MD duloxetine (Cymbalta) 20 mg PO DAILY ondansetron 4 mg PO Q6H PRN Tobacco use date assessed: 12/06/23 Dental Screening Dental Screen Date: 12/06/23 Did you have a dental visit in the last 12 months?: Yes Did you have a dental problem in the last 6 months where you did not have access to dental care?: No Was dental information given to patient?: Patient has dentist HPI Swollen glands/seen at ED 11/19 HPI Details Pt c/o chronic rhinitis for 3 years, worse since she moved to a new house 2 years. Patient has been taking Benadryl and Flonase nasal spray with some relief. She reports occasionally sneezing and itchy eyes. Patient denies cough wheezing shortness of breath. COUNT INCLUDES [facility] Medical History Annual physical exam Nasal polyps Dysphagia Hyperlipidemia SI (sacroiliac) joint dysfunction Lower back pain Migraine headache Tension headache Surgical History Hx of emergency section History of ankle surgery Family History Father No problems noted. Mother Fibromyalgia Maternal Grandmother No problems noted. Maternal Grandfather No problems noted. Paternal Grandmother No problems noted. Paternal Grandmother No problems noted. Brother No problems noted. Brother No problems noted. Brother No problems noted. Brother No problems noted. Daughter No problems noted. Social History Household Members: Spouse and Children Household Members Other:: 2 1/2 y/o Housing: House Alcohol intake: never Patient Tobacco Use Status: Never used Tobacco e-Cigarette/Vaping Use: Never Used Current occupational status: unemployed Current occupation: lt handed/[employer]- Currently out of work due to work injury Cognitive needs: No Hearing needs: No Vision needs: Yes Questionnaire PHQ-9 Over the last 2 weeks, how often have you been bothered by any of the following problems? 1. Little interest or pleasure in doing things: not at all 2. Feeling down, depressed, or hopeless: not at all 3. Trouble falling or staying asleep, or sleeping too much: not at all 4. Feeling tired or having little energy: not at all 5. Poor appetite or overeating: not at all 6. Feeling bad about yourself - or that you are a failure or have let yourself or your family down: not at all 7. Trouble concentrating on things, such as reading the newspaper or watching television: not at all 8. Moving or speaking so slowly that other people could have noticed. Or the opposite - being so fidgety or restless that you have been moving around a lot more than usual: not at all 9. Thoughts that you would be better off or of hurting yourself in some way: not at all Total score: 0 Depression Screening Interpretation: Negative Depression Screening Done: Yes 67057 - PHQ-9 Billing: Yes Source: Developed by Drs. Pramod Rivas, Shannon Becker, Sarwat Almonte and colleagues, with an educational jessica from [employer]. Thrive Questionnaire Date Thrive assessed: 12/06/23 I am a: Patient What is your living situation today?: I have a steady place to live Within the past 12 months, did the food you bought not last and you didn't have the money to get more?: Never true Within the past 12 months, did you worry whether your food would run out before you got money to buy more?: Never true Do you have trouble paying for medicines?: No Do you have trouble getting transportation to medical appointments?: No Do you have trouble paying your heating and electricity bill?: No Do you have trouble taking care of your child, family member or friend?: No Do you have trouble with day-to-day activities such as bathing, preparing meals, shopping, managing finances, etc.?: No Are you currently unemployed and looking for a job?: No Are you interested in more education?: No Please select the resources that you would like help with: None Currently or been in a relationship where the following occur: no concerns reported THRIVE Score: 0 AUDIT C Alcohol Use Questionnaire (AUDIT-C) 1. How often do you have a drink containing alcohol?: Monthly or less 2. How many drinks containing alcohol do you have on a typical day when you are drinking?: 1 or 2 3. How often do you have six or more drinks on one occasion?: Never Total Score: 1 Score Reviewed/Action Taken: Yes BARRON-7 AMB Questionnaire BARRON-7 Date BARRON - 7 assessed: 12/06/23 Feeling nervous, anxious, or on edge: 0 = Not at all Not being able to stop or control worryin = Not at all Worrying too much about different things: 0 = Not at all Trouble relaxin = Not at all Being so restless that it is hard to sit still: 0 = Not at all Becoming easily annoyed or irritable: 0 = Not at all Feeling afraid as if something awful might happen: 0 = Not at all Total BARRON-7 score (0-4 normal; 5-9 mild; 10-14 moderate; 15-21 severe): 0 Source: Developed by Drs. Pramod Rivas, Shannon Becker, Sarwat Almonte and colleagues, with an educational jessica from [employer]. BARRON-7 Assessment Billing BARRON-7 Assessment Tool: BARRON-7 Assessment 21327 Review of Systems Const All systems reviewed & are unremarkable except as noted in HPI and below Reports no additional complaints Eyes Reports no additional complaints ENT Reports no additional complaints Card Reports no additional complaints Resp Reports no additional complaints GI Reports no additional complaints Physical exam (Primary Care) Vital Signs: Last Vital Signs Pulse 73 12/06/23 11:59 BP 112/74 12/06/23 11:59 Pulse Ox 100 12/06/23 11:59 BMI result Body Mass Index 24.1 Tobacco/Smoking Status: Tobacco use Status Tobacco use date assessed 12/06/23 12/06/23 12:04 Patient Tobacco Use Status Never used Tobacco 12/06/23 12:04 e-Cigarette/Vaping Use Never Used 12/06/23 12:04 PHQ-9: PHQ-9 Score PHQ-9: Total score 0 12/06/23 12:04 Depression Screening Interpretation: Negative Thrive Assessment: Date of Thrive Assessment Date Thrive assessed 12/06/23 12/06/23 12:04 Currently or been in a relationship where the following occur: no concerns reported Const General: no acute distress HENMT Head: Yes normal to inspection Ears: hearing grossly normal bilaterally General nose exam: Abnormal mucous membranes and turbinates present pale Face and sinus: Yes normal facial exam Mouth: Normal oral and palatal mucosa present Throat: Yes posterior oropharynx normal Neck Neck: Yes no lymphadenopathy and Yes supple Resp Effort & Inspection: normal respiratory effort Auscultation: clear to auscultation bilaterally Cardio Rhythm: regular rhythm Heart sounds: S1 normal heart sound present and S2 normal heart sound present Assessment and Plan Assessment & Plan (1) Chronic rhinitis: Code(s): J31.0 - Chronic rhinitis Plan: Refer patient to ENT. she was advised to try long-acting antihistamine such as Claritin or Zyrtec and continue to use Flonase nasal spray as needed Orders: Referrals Ear/Nose/Throat Referral J31.0 - Chronic rhinitis Coding Level of Care Code Est Pt Level 3 (27906) Diagnoses Chronic rhinitis J31.0 Additional Codes BARRON-7 Assessment Billing - BARRON-7 Assessment Tool: BARRON-7 Assessment [id number] ([id number])
[2023-12-06 11:59] VITALS: BP 112/74; PULSE 73; O2SAT 100; BMI 24.1
== END 2023-12-06 12:53 | disposition home or self-care (01) ==
PROVIDERS: PCP Internal Medicine; Visit Provider Internal Medicine
DX: J31.0 Chronic rhinitis (principal)
CPT/HCPCS: 99213

== ENCOUNTER 2024-05-11 22:43 | Emergency (ER) | payer OTHER, SELFPAY ==
--- NOTE | 2024-05-11 | ECG_ITS ---
Test Reason : Dyspnea Blood Pressure : / mmHG Vent. Rate : 068 BPM Atrial Rate : 068 BPM P-R Int : 142 ms QRS Dur : 080 ms QT Int : 376 ms P-R-T Axes : 071 083 050 degrees QTc Int : 399 ms Normal sinus rhythm Possible Left atrial enlargement Borderline ECG When compared with ECG of 30-JUN-2017 02:22, No significant change was found Referred By: Generic ED Physician Electronically Signed By:LINDY ALVARADO
[2024-05-11 22:47] VITALS: BP 125/69; PULSE 73; RESP 20; TEMP 37; O2SAT 100; BMI 21.6
[2024-05-11 23:20] LABS: Basophils Absolute Auto 0.1 X10*3/uL (0.0-0.2); Basophils Percent Auto 0.7 % (0-2); Eosinophils Absolute Auto 0.3 X10*3/uL (0.0-0.4); Eosinophils Percent Auto 2.8 % (0-4); Hematocrit 35.4 % (37.0-47.0); Hemoglobin 11.5 g/dl (12.0-16.0); Imm Gran Abs Auto 0.02 X10*3/uL (0.00-0.03); Imm Gran Pct Auto 0.2 % (0.0-0.4); Lymphocytes Absolute Auto 3.8 X10*3/uL (1.2-4.9); Lymphocytes Percent Auto 41.8 % (20-40); MANUAL DIFF FLAG NO; Mean Corpuscular HGB Conc 32.5 g/dl (31.0-35.0); Mean Corpuscular Volume 83.1 fL (80.0-98.0); Mean Platelet Volume 9.3 fL (9.4-12.3); Monocytes Absolute Auto 0.6 X10*3/uL (0.1-1.2); Neutrophils Absolute Auto 4.3 x10*3/uL (2.0-8.3); Neutrophils Percent Auto 47.5 % (45-73); Platelet Count 283 X10*3/uL (160-400); Red Blood Count 4.26 X10*6/uL (4.20-5.50); Red Cell Distribution Width 13.4 % (11.0-16.0)
[2024-05-11 23:21] VITALS: BP 135/73; PULSE 81; RESP 16; TEMP 37.3; O2SAT 100
[2024-05-11 23:34] LABS: Alanine Aminotransferase 12 U/L (0-31); Albumin Level 4.1 g/dL (3.5-5.0); Alkaline Phosphatase 56 U/L (39-117); Anion Gap 13 (12-20); Aspartate Amino Transferase 18 U/L (5-31); Bilirubin Total 0.3 mg/dL (0.0-1.0); Blood Urea Nitrogen 13 mg/dL (9-16); Calcium 9.1 mg/dL (8.4-10.2); Carbon Dioxide 24 mmol/L (22-29); Chloride 106 mmol/L (96-108); Creatinine Clr Calc Pharmacy 73.4; Estimated Glomerular Filt Rate > 60; Glucose Random 96 mg/dL (60-115); Potassium 3.9 mmol/L (3.3-5.1); Sodium 139 mmol/L (135-145); Total Protein 7.5 g/dL (6.5-8.0)
[2024-05-11 23:46] LABS: Troponin-I High Sensitivity < 2.7 ng/L (<3.5-17.0)
--- NOTE | 2024-05-12 00:44 | PC.NURSE ---
Pt a&ox4, no signs of distress. Pt denies pain, n/v at this time Family at bedside Plan of care ongoing.
--- NOTE | 2024-05-12 00:51 | ED_ITS ---
HPI - SOB/Dyspnea General Chief Complaint: Dyspnea Stated Complaint: difficulty breathing Time Seen by Provider: 05/12/24 00:16 Source: patient Mode of arrival: ambulatory Limitations: no limitations History of Present Illness ED Provider: blas DC Narrative: Patient's history of increased stress/anxiety unable to sleep for last few weeks been feeling weak tired all the time ,no palpitation chest pain having chest heaviness for last few days sometimes feel dizzy on standing patient's drinks lot of coffee Related Data Home Medications ?Medication ?Instructions ?Recorded ?Confirmed duloxetine 20 mg capsule,delayed 20 mg PO DAILY 12/06/23 12/06/23 release (Cymbalta) Previous Rx's ?Medication ?Instructions ?Recorded ondansetron 4 mg disintegrating 4 mg PO Q6H PRN nausea and 11/02/22 tablet vomiting #14 tabs lorazepam 1 mg tablet 1 mg PO BEDTIME PRN Anxiety/sleep 05/12/24 #14 tabs Allergies Allergy/AdvReac Type Severity Reaction Status Date / Time gabapentin Allergy rash loss Verified 05/11/24 22:50 of memory Review of Systems 2 Review of Systems: Yes all other systems are reviewed and are negative [facility] Past Medical History Medical History Annual physical exam Nasal polyps Dysphagia Hyperlipidemia SI (sacroiliac) joint dysfunction Lower back pain Migraine headache Tension headache Surgical History Hx of emergency section History of ankle surgery Family History Family History Father No problems noted. Mother Fibromyalgia Maternal Grandmother No problems noted. Maternal Grandfather No problems noted. Paternal Grandmother No problems noted. Paternal Grandmother No problems noted. Brother No problems noted. Brother No problems noted. Brother No problems noted. Brother No problems noted. Daughter No problems noted. Social History Social History Household Members: Spouse and Children Household Members Other:: 2 1/2 y/o Housing: House Alcohol intake: never Patient Tobacco Use Status: Never used Tobacco Smoked in Last 30 Days: No e-Cigarette/Vaping Use: Never Used Use of substances other than those prescribed or required for medical reasons: No Advance Directives: No Advance Directives Information Provided: Yes Do you have a plan to hurt others: No Plan Current occupational status: unemployed Current occupation: lt handed/[employer]- Currently out of work due to work injury Cognitive needs: No Hearing needs: No Vision needs: Yes Physical Exam 2 Vital Signs: Vital Signs: Last Vital Signs Temp 97.8 F 05/12/24 01:24 Pulse 80 05/12/24 01:24 Resp 12 05/12/24 01:24 BP 119/71 05/12/24 01:24 Pulse Ox 100 05/12/24 01:24 O2 Del Method Room Air 05/12/24 01:24 BMI result Body Mass Index 21.6 Appearance: Alert. Oriented X3. No acute distress. Eyes: PERRLA, No Nystagmus ENT: Pharynx normal. Oral Mucosa moist Neck: Normal inspection. Neck supple. CVS: Normal heart rate and rhythm. Pulses normal. Respiratory: No respiratory distress. Equal air entry bilateral, no wheezing/rales/rhonchi Abdomen: Soft and nontender. Bowel sounds are present, no mass palpable, no CVA tenderness Skin: Skin warm and dry. Normal skin color. Normal skin turgor. Extremities: No lower extremity edema. No calf tenderness Neuro: Oriented X 3. No motor deficit. No sensory deficit.No cerebellar signs , cranial nerves II-XII intact Medications Administered Discontinued Medications Generic Name Dose Route Start Last Admin Trade Name Freq PRN Reason Stop Dose Admin Lorazepam 1 mg 05/12/24 01:00 05/12/24 01:21 Lorazepam 1 Mg Tablet PO 05/12/24 01:01 1 mg ONCE ONE Administration Medical Decision Making Medical Decision Making [facility] Narrative: Patient with chronic insomnia with increased stress likely the cause of her symptoms lab workup negative orthostatics stable discharge patient home on Ativan Differential Diagnosis Differential Diagnoses: The differential diagnosis associated with the presentation includes Vasovagal/anxiety/chronic insomnia Lab Data [facility] Lab Attestation statement: I reviewed the patient's lab results. 05/11/24 23:15 05/11/24 23:15 Labs: Lab Results 05/11/24 Range/Units 23:15 WBC 9.0 (4.8-10.8) X10*3/uL RBC 4.26 (4.20-5.50) X10*6/uL Hgb 11.5 L (12.0-16.0) g/dl Hct 35.4 L (37.0-47.0) % MCV 83.1 (80.0-98.0) fL MCH 27.0 (27.0-33.0) pg MCHC 32.5 (31.0-35.0) g/dl RDW 13.4 (11.0-16.0) % Plt Count 283 (160-400) X10*3/uL MPV 9.3 L (9.4-12.3) fL Immature Gran % (Auto) 0.2 (0.0-0.4) % Neut % (Auto) 47.5 (45-73) % Lymph % (Auto) 41.8 H (20-40) % [place] % (Auto) 7.0 (2-11) % Eos % (Auto) 2.8 (0-4) % Baso % (Auto) 0.7 (0-2) % Lymph # (Auto) 3.8 (1.2-4.9) X10*3/uL [place] # (Auto) 0.6 (0.1-1.2) X10*3/uL Eos # (Auto) 0.3 (0.0-0.4) X10*3/uL Baso # (Auto) 0.1 (0.0-0.2) X10*3/uL Abs Immat Gran (auto) 0.02 (0.00-0.03) X10*3/uL Absolute Neuts (auto) 4.3 (2.0-8.3) x10*3/uL Absolute Nucleated RBC 0.000 (0.0-0.012) X10*3/uL Nucleated RBC % (auto) 0.0 (0.0-0.2) /100WBC Sodium 139 (135-145) mmol/L Potassium 3.9 (3.3-5.1) mmol/L Chloride 106 (96-108) mmol/L Carbon Dioxide 24 (22-29) mmol/L Anion Gap 13 (12-20) BUN 13 (9-16) mg/dL Creatinine 0.98 (0.5-1.4) mg/dL Estim Creat Clear Calc 73.4 Estimated GFR > 60 Random Glucose 96 (60-115) mg/dL Calcium 9.1 (8.4-10.2) mg/dL Magnesium 2.0 (1.6-2.6) mg/dL Total Bilirubin 0.3 (0.0-1.0) mg/dL AST 18 (5-31) U/L ALT 12 (0-31) U/L Alkaline Phosphatase 56 (39-117) U/L Troponin I High Sens < 2.7 (<3.5-17.0) ng/L Total Protein 7.5 (6.5-8.0) g/dL Albumin 4.1 (3.5-5.0) g/dL Independent Interpretation I performed an independent interpretation of an: EKG Interpretation: Normal sinus rhythm heart rate 68 beats per normal interval normal axis no acute ST-T no acute ischemia Discharge Plan Discharge Clinical Impression: Anxiety, Chronic insomnia Patient Disposition: Home, Self-Care Instructions: Insomnia (ED), Anxiety (ED) Additional Instructions: Decreased caffeine intake Take lorazepam 1 mg tablet every evening as needed for sleep/anxiety Follow up with your PCP Prescriptions: New lorazepam 1 mg tablet 1 mg PO BEDTIME PRN (Reason: Anxiety/sleep) Qty: 14 0RF No Action ondansetron 4 mg tablet,disintegrating 4 mg PO Q6H PRN (Reason: nausea and vomiting) Qty: 14 0RF duloxetine [Cymbalta] 20 mg capsule,delayed release(DR/EC) 20 mg PO DAILY Interventions: ED Discharge Assessment Last Done: 05/12/24 01:24 Discharge Date/Time: 05/12/24 01:30 Print Language: Hebrew
[2024-05-12 01:04] VITALS: BP 114/58; BP 118/66; PULSE 70; PULSE 77
[2024-05-12 01:05] VITALS: BP 119/71; PULSE 80
[2024-05-12] MEDS: LORazepam 1 MG TABLET PO (01:21)
[2024-05-12 01:24] VITALS: BP 119/71; PULSE 80; RESP 12; TEMP 36.6; O2SAT 100
--- NOTE | 2024-05-12 01:24 | PC.NURSE ---
Pt medicated per oct. Plan of care ongoing.
== END 2024-05-12 01:30 | disposition home or self-care (01) ==
PROVIDERS: Emergency Provider Internal Medicine; PCP Internal Medicine
DX: F41.1 Generalized anxiety disorder (principal); G47.00 Insomnia, unspecified; R06.02 Shortness of breath; R94.31 Abnormal electrocardiogram [ECG] [EKG]; R42 Dizziness and giddiness; Z79.899 Other long term (current) drug therapy
CPT/HCPCS: 36415; 80053; 83735; 84484; 85025; 93005; 99283; 99285

== ENCOUNTER 2024-05-21 18:24 | Emergency (ER) | payer OTHER, SELFPAY ==
--- NOTE | ~2024-05-21 | XR_ITS ---
EXAMINATION: XR CHEST CLINICAL INFORMATION: Chest pain. COMPARISON: Chest radiograph dated 02/15/2022. TECHNIQUE: Frontal view of the chest was obtained. FINDINGS: The lungs are clear. The cardiomediastinal silhouette is normal in size. There is no pleural effusion or pneumothorax. No acute osseous abnormality. XR/XR chest 1V IMPRESSION: No acute cardiopulmonary findings. Electronically signed by: Arnulfo Butler MD 05/21/2024 10:18 PM EDT
[2024-05-21 18:28] VITALS: BP 128/68; PULSE 68; RESP 14; TEMP 36.2; O2SAT 98; BMI 25.2
--- NOTE | 2024-05-21 18:32 | ED_ITS ---
HPI - Chest Pain General Chief Complaint: Chest Pain Stated Complaint: heart issues/feels like its being squeezed 65bpm Time Seen by Provider: 05/21/24 22:56 Source: patient Mode of arrival: ambulatory Limitations: no limitations History of Present Illness ED Provider: blas DC narrative: Patient's history of anxiety under increased stress because of her parents who planning to move in with her, lately feeling sharp pain left side of the chest was seen here for similar complaints a week ago workup was negative today also prior to my evaluation 2 sets of cardiac enzymes negative EKG without any ischemic changes unable to sleep in the night Related Data Previous Rx's ?Medication ?Instructions ?Recorded ondansetron 4 mg disintegrating 4 mg PO Q6H PRN nausea and 11/02/22 tablet vomiting #14 tabs sertraline 50 mg tablet 50 mg PO DAILY #90 tabs 05/22/24 Allergies Allergy/AdvReac Type Severity Reaction Status Date / Time gabapentin Allergy rash loss Verified 05/22/24 10:00 of memory duloxetine AdvReac Intermediate Back Pain Verified 05/22/24 10:18 Review of Systems 2 Review of Systems: Yes all other systems are reviewed and are negative [facility] Past Medical History Medical History Annual physical exam Nasal polyps Dysphagia Hyperlipidemia SI (sacroiliac) joint dysfunction Lower back pain Migraine headache Tension headache Surgical History Hx of emergency section History of ankle surgery Family History Family History Father No problems noted. Mother Fibromyalgia Maternal Grandmother No problems noted. Maternal Grandfather No problems noted. Paternal Grandmother No problems noted. Paternal Grandmother No problems noted. Brother No problems noted. Brother No problems noted. Brother No problems noted. Brother No problems noted. Daughter No problems noted. Social History Social History Household Members: Spouse and Children Household Members Other:: 2 1/2 y/o Housing: House Alcohol intake: never Patient Tobacco Use Status: Never used Tobacco e-Cigarette/Vaping Use: Never Used service: No Current occupational status: unemployed Current occupation: lt handed/[employer]- Currently out of work due to work injury Cognitive needs: No Hearing needs: No Vision needs: Yes Physical Exam 2 Vital Signs: Vital Signs: Last Vital Signs Temp 98.6 F 05/21/24 23:24 Pulse 63 05/21/24 23:24 Resp 16 05/21/24 23:24 BP 132/54 L 05/21/24 23:24 Pulse Ox 100 05/21/24 23:24 O2 Del Method Room Air 05/21/24 23:24 BMI result Body Mass Index 25.2 Appearance: Alert. Oriented X3. No acute distress. Anxious Eyes: No pallor or icterus ENT: Pharynx normal. Oral Mucosa moist Neck: Normal inspection. Neck supple. CVS: Normal heart rate and rhythm. Pulses normal. Respiratory: No respiratory distress. Equal air entry bilateral, no wheezing/rales/rhonchi Abdomen: Soft and nontender. Bowel sounds are present, no mass palpable, no CVA tenderness Skin: Skin warm and dry. Normal skin color. Normal skin turgor. Extremities: No lower extremity edema. No calf tenderness Neuro: Oriented X 3. No motor deficit. Course Course Course Narrative: RME: done bY KRISTA Tavarez. 34-year-old female presents to ED for chest pain. Patient was seen here recently with same presentation diagnosed anxiety. Patient denies any leg swelling, calf pain, coughing up blood, fever, chills. Negative for lower extremity swelling, pitting edema, calf pain. EKG labs chest x-ray ordered. Medications Administered Discontinued Medications Generic Name Dose Route Start Last Admin Trade Name Stevenq PRN Reason Stop Dose Admin Lorazepam 1 mg 05/21/24 23:12 05/21/24 23:18 Lorazepam 1 Mg Tablet PO 05/21/24 23:13 1 mg ONCE ONE Administration Tramadol HCl 50 mg 05/21/24 23:12 05/21/24 23:18 Tramadol Hcl 50 Mg Tablet PO 05/21/24 23:13 50 mg ONCE ONE Administration Medical Decision Making Medical Decision Making [facility] Narrative: Patient's anxiety with heart score of 0 comes here for left-sided chest pain 2 sets of enzymes negative EKG without ischemic changes will prescribe anxiety medication Differential Diagnosis Differential Diagnoses: The differential diagnosis associated with the presentation includes Lab Data [facility] Lab Attestation statement: I reviewed the patient's lab results. 05/21/24 18:47 05/21/24 18:47 Labs: Lab Results 05/21/24 05/21/24 Range/Units 18:47 21:52 WBC 7.1 (4.8-10.8) X10*3/uL RBC 4.17 L (4.20-5.50) X10*6/uL Hgb 11.4 L (12.0-16.0) g/dl Hct 34.8 L (37.0-47.0) % MCV 83.5 (80.0-98.0) fL MCH 27.3 (27.0-33.0) pg MCHC 32.8 (31.0-35.0) g/dl RDW 13.4 (11.0-16.0) % Plt Count 292 (160-400) X10*3/uL MPV 9.2 L (9.4-12.3) fL Immature Gran % (Auto) 0.1 (0.0-0.4) % Neut % (Auto) 41.3 L (45-73) % Lymph % (Auto) 45.9 H (20-40) % [place] % (Auto) 7.7 (2-11) % Eos % (Auto) 3.9 (0-4) % Baso % (Auto) 1.1 (0-2) % Lymph # (Auto) 3.3 (1.2-4.9) X10*3/uL [place] # (Auto) 0.6 (0.1-1.2) X10*3/uL Eos # (Auto) 0.3 (0.0-0.4) X10*3/uL Baso # (Auto) 0.1 (0.0-0.2) X10*3/uL Abs Immat Gran (auto) 0.01 (0.00-0.03) X10*3/uL Absolute Neuts (auto) 2.9 (2.0-8.3) x10*3/uL Absolute Nucleated RBC 0.000 (0.0-0.012) X10*3/uL Nucleated RBC % (auto) 0.0 (0.0-0.2) /100WBC PT 12.1 (10.9-12.4) SEC INR 1.0 (0.9-1.1) APTT 31.6 (26.0-36.8) SEC Sodium 140 (135-145) mmol/L Potassium 3.9 (3.3-5.1) mmol/L Chloride 108 (96-108) mmol/L Carbon Dioxide 25 (22-29) mmol/L Anion Gap 11 L (12-20) BUN 10 (9-16) mg/dL Creatinine 1.00 (0.5-1.4) mg/dL Estim Creat Clear Calc 75.1 Estimated GFR > 60 Random Glucose 87 (60-115) mg/dL Calcium 9.1 (8.4-10.2) mg/dL Total Bilirubin 0.5 (0.0-1.0) mg/dL AST 18 (5-31) U/L ALT 12 (0-31) U/L Alkaline Phosphatase 58 (39-117) U/L Troponin I High Sens < 2.7 < 2.7 (<3.5-17.0) ng/L Total Protein 7.6 (6.5-8.0) g/dL Albumin 4.3 (3.5-5.0) g/dL Independent Interpretation I performed an independent interpretation of an: EKG Interpretation: Normal sinus rhythm heart rate 65 beats per minute normal interval normal axis no acute ST T wave changes no acute ischemia Discharge Plan Discharge Clinical Impression: Atypical chest pain, Anxiety Patient Disposition: Home, Self-Care Instructions: Noncardiac Chest Pain (ED), Anxiety (ED) Additional Instructions: Continue take your lorazepam for anxiety/panic Tramadol for pain Follow with your PCP Prescriptions: No Action ondansetron 4 mg tablet,disintegrating 4 mg PO Q6H PRN (Reason: nausea and vomiting) Qty: 14 0RF sertraline 50 mg tablet 50 mg PO DAILY Qty: 90 0RF Rx Instructions: 1/2 tabl qd for 1 week, then 1 tabl qd Interventions: ED Discharge Assessment Last Done: 05/21/24 23:24 Discharge Date/Time: 05/21/24 23:25 Print Language: Yoruba
--- NOTE | 2024-05-21 18:32 | ECG_ITS ---
Test Reason : CHEST PAIN Blood Pressure : / mmHG Vent. Rate : 065 BPM Atrial Rate : 065 BPM P-R Int : 148 ms QRS Dur : 086 ms QT Int : 392 ms P-R-T Axes : 042 083 058 degrees QTc Int : 407 ms Normal sinus rhythm Normal ECG When compared with ECG of 11-MAY-2024 23:02, No significant change was found Referred By: Kota Smith Electronically Signed By:LINDY ALVARADO
[2024-05-21 18:55] LABS: Basophils Absolute Auto 0.1 X10*3/uL (0.0-0.2); Basophils Percent Auto 1.1 % (0-2); Eosinophils Absolute Auto 0.3 X10*3/uL (0.0-0.4); Eosinophils Percent Auto 3.9 % (0-4); Hematocrit 34.8 % (37.0-47.0); Hemoglobin 11.4 g/dl (12.0-16.0); Imm Gran Abs Auto 0.01 X10*3/uL (0.00-0.03); Imm Gran Pct Auto 0.1 % (0.0-0.4); Lymphocytes Absolute Auto 3.3 X10*3/uL (1.2-4.9); Lymphocytes Percent Auto 45.9 % (20-40); MANUAL DIFF FLAG NO; Mean Corpuscular HGB Conc 32.8 g/dl (31.0-35.0); Mean Corpuscular Hemoglobin 27.3 pg (27.0-33.0); Mean Corpuscular Volume 83.5 fL (80.0-98.0); Mean Platelet Volume 9.2 fL (9.4-12.3); Monocytes Absolute Auto 0.6 X10*3/uL (0.1-1.2); Monocytes Percent Auto 7.7 % (2-11); Neutrophils Absolute Auto 2.9 x10*3/uL (2.0-8.3); Neutrophils Percent Auto 41.3 % (45-73); Platelet Count 292 X10*3/uL (160-400); Red Blood Count 4.17 X10*6/uL (4.20-5.50); Red Cell Distribution Width 13.4 % (11.0-16.0); White Blood Count 7.1 X10*3/uL (4.8-10.8)
[2024-05-21 19:00] LABS: Prothrombin Time 12.1 SEC (10.9-12.4)
[2024-05-21 19:03] LABS: Partial Thromboplastin Time 31.6 SEC (26.0-36.8)
[2024-05-21 19:10] LABS: Alanine Aminotransferase 12 U/L (0-31); Albumin Level 4.3 g/dL (3.5-5.0); Alkaline Phosphatase 58 U/L (39-117); Anion Gap 11 (12-20); Aspartate Amino Transferase 18 U/L (5-31); Bilirubin Total 0.5 mg/dL (0.0-1.0); Blood Urea Nitrogen 10 mg/dL (9-16); Calcium 9.1 mg/dL (8.4-10.2); Carbon Dioxide 25 mmol/L (22-29); Chloride 108 mmol/L (96-108); Creatinine Clr Calc Pharmacy 75.1; Estimated Glomerular Filt Rate > 60; Glucose Random 87 mg/dL (60-115); Potassium 3.9 mmol/L (3.3-5.1); Sodium 140 mmol/L (135-145); Total Protein 7.6 g/dL (6.5-8.0)
[2024-05-21 19:19] LABS: Troponin-I High Sensitivity < 2.7 ng/L (<3.5-17.0)
[2024-05-21 21:47] VITALS: BP 132/54; PULSE 65; RESP 16; TEMP 36.2; O2SAT 98
[2024-05-21 21:49] VITALS: BP 132/54; PULSE 63; RESP 16; TEMP 37; O2SAT 100
[2024-05-21 22:23] LABS: Troponin-I High Sensitivity < 2.7 ng/L (<3.5-17.0)
[2024-05-21] MEDS: LORazepam 1 MG TABLET PO (23:18)
[2024-05-21] MEDS: traMADoL HCL 50 MG TABLET PO (23:18)
[2024-05-21 23:24] VITALS: BP 132/54; PULSE 63; RESP 16; TEMP 37; O2SAT 100
== END 2024-05-21 23:25 | disposition home or self-care (01) ==
PROVIDERS: Physician Assistant; Emergency Provider Internal Medicine; PCP Internal Medicine
DX: R07.89 Other chest pain (principal); F41.9 Anxiety disorder, unspecified; Z79.899 Other long term (current) drug therapy
CPT/HCPCS: 36415; 71045; 80053; 84484; 85025; 85610; 85730; 93005; 99284

== ENCOUNTER 2024-05-22 09:54 | Outpatient (AMB) | payer OTHER, SELFPAY ==
[2024-05-22 09:58] VITALS: BP 102/62; PULSE 70; O2SAT 99; BMI 25.1
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
== END 2024-05-22 10:34 | disposition home or self-care (01) ==
PROVIDERS: PCP Internal Medicine; Visit Provider Internal Medicine
DX: F41.9 Anxiety disorder, unspecified (principal)

== ENCOUNTER → 2024-05-22 09:54 | Outpatient (BNVA) | payer OTHER, SELFPAY | PROVIDERS: PCP Internal Medicine; Visit Provider Internal Medicine | DX: F41.9 Anxiety disorder, unspecified (principal) | CPT/HCPCS: 99212 ==

== ENCOUNTER 2024-06-24 10:03 | Outpatient (AMB) | payer OTHER, SELFPAY ==
--- NOTE | 2024-06-24 10:05 | MHC.PC.OV ---
Vital Signs 06/24/24 10:06 Height 5 ft 4 in Weight 143 lb BMI 24.5 BP 108/70 Blood Pressure Location Lt brachial Position Sitting Pulse 82 Pulse Source Pulse Oximeter Pulse Oximetry (%) 99 Oxygen Delivery Method Room Air Intake Visit Reasons: 1 month follow up Intake Note: Pt is here today for 1 month follow up visit. Allergies gabapentin Allergy (Verified 06/24/24 10:07) rash loss of memory duloxetine Adverse Reaction (Intermediate, Verified 06/24/24 10:07) Back Pain sertraline Adverse Reaction (Intermediate, Verified 06/24/24 10:32) Diarrhea Medication List - Last Reconciled 06/24/24 by Lisa Coe MD ondansetron 4 mg PO Q6H PRN Tobacco use date assessed: 05/22/24 Dental Screening Dental Screen Date: 05/22/24 HPI 1 month follow up HPI Details Patient presents for PE and the follow-up for chronic anxiety and depression. She has an appointment with a counselor scheduled next week. Patient could not tolerate sertraline because she developed diarrhea after taking it for 1 week. Patient denies suicide ideation she complains of chronic right leg pain and is established with pain management [facility] Medical History Annual physical exam Nasal polyps Dysphagia Hyperlipidemia SI (sacroiliac) joint dysfunction Lower back pain Migraine headache Tension headache Surgical History Hx of emergency section History of ankle surgery Family History Father No problems noted. Mother Fibromyalgia Maternal Grandmother No problems noted. Maternal Grandfather No problems noted. Paternal Grandmother No problems noted. Paternal Grandmother No problems noted. Brother No problems noted. Brother No problems noted. Brother No problems noted. Brother No problems noted. Daughter No problems noted. Social History Household Members: Spouse and Children Household Members Other:: 2 1/2 y/o Housing: House Alcohol intake: never Patient Tobacco Use Status: Never used Tobacco e-Cigarette/Vaping Use: Never Used service: No Current occupational status: unemployed Current occupation: lt handed/[employer]- Currently out of work due to work injury Cognitive needs: No Hearing needs: No Vision needs: Yes Questionnaire PHQ-9 Over the last 2 weeks, how often have you been bothered by any of the following problems? 1. Little interest or pleasure in doing things: not at all 2. Feeling down, depressed, or hopeless: not at all 3. Trouble falling or staying asleep, or sleeping too much: nearly every day 4. Feeling tired or having little energy: nearly every day 5. Poor appetite or overeating: not at all 6. Feeling bad about yourself - or that you are a failure or have let yourself or your family down: not at all 7. Trouble concentrating on things, such as reading the newspaper or watching television: not at all 8. Moving or speaking so slowly that other people could have noticed. Or the opposite - being so fidgety or restless that you have been moving around a lot more than usual: not at all 9. Thoughts that you would be better off or of hurting yourself in some way: not at all Total score: 6 Depression Screening Interpretation: Negative Depression Screening Done: Yes 61387 - PHQ-9 Billing: Yes Source: Developed by Drs. Pramod Rivas, Shannon Becker, Sarwat Almonte and colleagues, with an educational jessica from [employer]. Thrive Questionnaire Date Thrive assessed: 06/17/24 I am a: Parent/Caregiver What is your living situation today?: I have a steady place to live Within the past 12 months, did the food you bought not last and you didn't have the money to get more?: Never true Within the past 12 months, did you worry whether your food would run out before you got money to buy more?: Never true Do you have trouble paying for medicines?: No Do you have trouble getting transportation to medical appointments?: No Do you have trouble paying your heating and electricity bill?: No Do you have trouble taking care of your child, family member or friend?: No Do you have trouble with day-to-day activities such as bathing, preparing meals, shopping, managing finances, etc.?: No Are you currently unemployed and looking for a job?: I choose not to answer this question Are you interested in more education?: No Please select the resources that you would like help with: None Currently or been in a relationship where the following occur: No concerns reported THRIVE Score: 0 AUDIT C Alcohol Use Questionnaire (AUDIT-C) 1. How often do you have a drink containing alcohol?: Never Total Score: 0 BARRON-7 AMB Questionnaire BARRON-7 Date BARRON - 7 assessed: 12/06/23 Feeling nervous, anxious, or on edge: 0 = Not at all Not being able to stop or control worryin = Not at all Worrying too much about different things: 0 = Not at all Trouble relaxin = Several days Being so restless that it is hard to sit still: 1 = Several days Becoming easily annoyed or irritable: 0 = Not at all Feeling afraid as if something awful might happen: 0 = Not at all Total BARRON-7 score (0-4 normal; 5-9 mild; 10-14 moderate; 15-21 severe): 2 Source: Developed by Drs. Pramod Rivas, Shannon Becker, Sarwat Almonte and colleagues, with an educational jessica from [employer]. Review of Systems Const All systems reviewed & are unremarkable except as noted in HPI and below Card Reports no additional complaints Resp Reports no additional complaints GI Reports no additional complaints Reports no additional complaints Physical exam (Primary Care) Vital Signs: Last Vital Signs Pulse 82 06/24/24 10:06 BP 108/70 06/24/24 10:06 Pulse Ox 99 06/24/24 10:06 Oxygen Delivery Method Room Air 06/24/24 10:06 BMI result Body Mass Index 24.5 Tobacco/Smoking Status: Tobacco use Status Tobacco use date assessed 05/22/24 06/24/24 10:09 Patient Tobacco Use Status Never used Tobacco 06/24/24 10:09 e-Cigarette/Vaping Use Never Used 06/24/24 10:09 PHQ-9: PHQ-9 Score PHQ-9: Total score 6 06/24/24 10:09 Depression Screening Interpretation: Negative Thrive Assessment: Date of Thrive Assessment Date Thrive assessed 06/17/24 06/24/24 10:09 Currently or been in a relationship where the following occur: No concerns reported Const General: no acute distress HENMT Mouth: Normal oral and palatal mucosa present Resp Effort & Inspection: normal respiratory effort Auscultation: clear to auscultation bilaterally Cardio Rhythm: regular rhythm Heart sounds: S1 normal heart sound present and S2 normal heart sound present Coding Level of Care Code Est Pt Prev Care 18-39y([id number]) Diagnoses Complex regional pain syndrome of lower extremity G90.529 Anxiety and depression F41.9; F32.A Annual physical exam Z00.00 Assessment & Plan Assessment & Plan (1) Complex regional pain syndrome of lower extremity: Comment: RLE, f/u with [facility] Code(s): G90.529 - Complex regional pain syndrome I of unspecified lower limb Category: Medical Plan: Follow-up with pain management (2) Anxiety and depression: Code(s): F41.9 - Anxiety disorder, unspecified; F32.A - Depression, unspecified Category: Medical Plan: Bupropion 150 mg will be tried. She will start counseling next week. (3) Annual physical exam: Code(s): Z00.00 - Encounter for general adult medical examination without abnormal findings Category: Medical Plan: Well-balanced diet regular physical activity discussed with the patient. She is established with the professor of rhetoric for a Pap smear Medications: New bupropion HCl XL (Wellbutrin XL) 150 mg PO QAM 30 tabs 0RF bupropion HCl XL (Wellbutrin XL) 150 mg PO QAM 30 tabs 2RF
[2024-06-24 10:06] VITALS: BP 108/70; PULSE 82; O2SAT 99; BMI 24.5
== END 2024-06-24 12:06 | disposition home or self-care (01) ==
LOC: HO.HMCC 10:04
PROVIDERS: PCP Internal Medicine; Visit Provider Internal Medicine
DX: G90.529 Complex regional pain syndrome I of unspecified lower limb (principal); F41.9 Anxiety disorder, unspecified; F32.A Depression, unspecified; Z00.00 Encounter for general adult medical examination without abnormal findings

== ENCOUNTER → 2024-06-24 10:03 | Outpatient (BNVA) | payer OTHER, SELFPAY | PROVIDERS: PCP Internal Medicine; Visit Provider Internal Medicine | DX: Z00.01 Encounter for general adult medical examination with abnormal findings (principal); G90.529 Complex regional pain syndrome I of unspecified lower limb; F41.9 Anxiety disorder, unspecified; F32.A Depression, unspecified | CPT/HCPCS: 96127; 99395 ==

== ENCOUNTER 2024-07-17 12:44 | Outpatient (AMB) | payer OTHER, SELFPAY ==
--- NOTE | 2024-07-17 12:58 | MHC.OFFVIS ---
Vital Signs 07/17/24 12:59 Height 5 ft 4 in Weight 140 lb BMI 24.0 BP 116/63 Blood Pressure Location Rt brachial Position Sitting Respiration 16 Pulse 78 Pulse Source Pulse Oximeter Pulse Oximetry (%) 98 Oxygen Delivery Method Room Air Intake Visit Reasons: Complex regional pain syndrome I Allergies gabapentin Allergy (Verified 07/17/24 13:01) rash loss of memory duloxetine Adverse Reaction (Intermediate, Verified 07/17/24 13:01) Back Pain sertraline Adverse Reaction (Intermediate, Verified 07/17/24 13:01) Diarrhea Medication List - Last Reconciled 07/17/24 by Sharron Nunez LPN bupropion HCl XL (Wellbutrin XL) 150 mg PO QAM HPI Comments Details: Marie is a very pleasant 34-year-old female who presents to the office today for evaluation management of her chronic right foot pain Patient has been suffering with this pain since September of 2018 after she suffered an injury at work. 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 She has been under the care of [facility] since. She has undergone multiple steroid injections for CRPS. They attempted spinal cord stimulation x2 both subsequently needed to be removed. The 1st spinal cord stimulator caused her to ?spit up water . The 2nd spinal cord stimulator exacerbated her pain to the point it was unbearable requiring the device to be removed. [facility] referred her here to be evaluated for temporary peripheral nerve stimulator She has undergone 2 surgeries of the right ankle, she states the or exploratory. Patient endorses allodynia. Denies skin, temperature, hair changes to that area. She has been diagnosed with CRPS in the past. Endorses pain across the top of her toes and on the lateral aspect of her ankle. When most severe pain will radiate up the leg. Pain today is rated as a 5/10, constant throughout the day Patient completed physical therapy greater than 1 year ago. She continues with home exercise program but does not find any relief Taking [id number] ibuprofen with no improvement She has been prescribed gabapentin, duloxetine, Lyrica with no improvement In terms of muscle damage condition is described as aching, stabbing, sharp, tingling, pins and needles, shooting, shocking, squeezing, numb, throbbing Pain is negatively impacting patient's enjoyment of life, general activity, mood, normal work, recreational activities, sleep and walking Denies implantable devices, pacemaker defibrillator Denies current use of anticoagulants [facility], [facility] Medical History Annual physical exam Nasal polyps Dysphagia Hyperlipidemia SI (sacroiliac) joint dysfunction Lower back pain Migraine headache Tension headache Surgical History Hx of emergency section History of ankle surgery Family History Father No problems noted. Mother Fibromyalgia Maternal Grandmother No problems noted. Maternal Grandfather No problems noted. Paternal Grandmother No problems noted. Paternal Grandmother No problems noted. Brother No problems noted. Brother No problems noted. Brother No problems noted. Brother No problems noted. Daughter No problems noted. Social History Household Members: Spouse and Children Household Members Other:: 2 1/2 y/o Housing: House Alcohol intake: never Patient Tobacco Use Status: Never used Tobacco e-Cigarette/Vaping Use: Never Used service: No Current occupational status: unemployed Current occupation: lt handed/[employer]- Currently out of work due to work injury Cognitive needs: No Hearing needs: No Vision needs: Yes Review of Systems Const All systems reviewed & are unremarkable except as noted in HPI and below Physical Exam Vital Signs: Last Vital Signs Pulse 78 07/17/24 12:59 Resp 16 07/17/24 12:59 BP 116/63 07/17/24 12:59 Pulse Ox 98 07/17/24 12:59 Oxygen Delivery Method Room Air 07/17/24 12:59 BMI result Body Mass Index 24.0 General: awake, alert, oriented. Answers questions appropriately. Fully engaged in examination. Skin: warm, dry, intact HEENT: Normocephalic. Hearing intact. Cardiac: External chest normal in appearance. Respiratory: No cough, audible wheezing or stridor. Abdomen: without gross distension. MS: No obvious swelling or deformities. Right foot/ankle: Tender to palpation lateral right ankle and across the top of her toes. Compared to the left foot they are symmetrical. No hair loss, skin texture or temperature changes noted Neurological: Oriented to person, place, time and situation. Thought process intact. No gait abnormalities appreciated. Psychiatric: Appropriate mood and affect. Good judgment and insight. Assessment & Plan Assessment & Plan (1) Complex regional pain syndrome of lower extremity: Comment: TASHA Code(s): G90.529 - Complex regional pain syndrome I of unspecified lower limb Category: Medical (2) Right ankle pain: Code(s): M25.571 - Pain in right ankle and joints of right foot Category: Medical (3) Right foot pain: Code(s): M79.671 - Pain in right foot Category: Medical Plan 34-year-old female presented to the office today for chronic right foot ankle pain Patient has exhausted conservative therapy including PT, home exercise program, NSAIDs, prescription medications, injections, spinal cord stimulation without improvement of her symptoms Discussed options for treatment including diagnostic interventional testing, epidural steroid injections, peripheral nerve stimulation with Sprint, RFA and more permanent neuromodulation. Informational pamphlets provided. Will schedule for ultrasound-guided right sciatic nerve at [facility] sprint PNS trial with local anesthetic. All questions and concerns have been answered and patient agrees with the plan. Follow up after procedures, sooner if needed. Coding Level of Care Code New Pt Level 4 (20920) Complex EM visit Add On G2211 Diagnoses Complex regional pain syndrome of lower extremity G90.529 Right ankle pain M25.571 Right foot pain M79.671
[2024-07-17 12:59] VITALS: BP 116/63; PULSE 78; RESP 16; O2SAT 98; BMI 24.0
== END 2024-07-17 13:42 | disposition home or self-care (01) ==
PROVIDERS: PCP Internal Medicine; Visit Provider Registered Nurse Emergency
DX: G90.529 Complex regional pain syndrome I of unspecified lower limb (principal); M25.571 Pain in right ankle and joints of right foot; M79.671 Pain in right foot
CPT/HCPCS: 99204; G2211

== ENCOUNTER → 2024-07-17 12:44 | Outpatient (BNVA) | payer OTHER, SELFPAY | PROVIDERS: PCP Internal Medicine; Visit Provider Registered Nurse Emergency | DX: G90.521 Complex regional pain syndrome I of right lower limb (principal); M25.571 Pain in right ankle and joints of right foot; M79.671 Pain in right foot | CPT/HCPCS: 99202 ==